=== PATIENT | female | born 1985 | race Caucasian/White ===

== ENCOUNTER 2019-09-25 11:09 | Outpatient (CLI) | payer OTHER, SELFPAY ==
--- NOTE | ~2019-09-25 | US_ITS ---
EXAMINATION: US OB follow up DATE: 09/25/2019 11:39 INDICATION: growth assessment during third trimester TECHNIQUE: Real-time ultrasound of the pelvis was performed. The interpreting radiologist was not pre sent for the study. COMPARISON: None. FINDINGS: There is a single living fetus in vertex presentation. The placenta is anterior. card iac activity and movement are noted. heart rate is 131 beats per minute (bpm). The amniot ic fluid index is 17.2 cm which is normal. The following biometric data were obtained: Biparietal diameter (BPD): 9.2 cm; head circumference (HC): 32.8 cm; abdominal circumference (AC): 33 .7 cm; femur length (FL): 7.1 cm. These measurements are concordant. Estimated weight is 3182 g +/- 477 g, which correlates with the 89th percentile when 10/25/2019 is used as estimated date of delivery. As single measurements, these parameters are each equal to the following estimated gestational ages w ith ranges of +/- 2 standard deviations: BPD: 37 weeks 5 days ( 34 weeks 3 days - 40 weeks 6 days). HC: 37 weeks 2 days ( 34 weeks 4 days - 40 weeks 0 days). AC: 37 weeks 4 days ( 34 weeks 4 days - 40 weeks 5 days). FL: 36 weeks 4 days ( 33 weeks 3 days - 39 weeks 5 days). estimated gestational age based solely on measurements from this exam is 37 weeks 2 days +/- 2 weeks 4 days. IMPRESSION: 1. Single living fetus in vertex presentation. 2. Estimated weight is 3182 g +/- 477 g, which correlates with the 89th percentile when 10/25/19 20 is used as estimated date of delivery. 3. Normal amniotic fluid index. Reviewed, dictated and finalized at location A. IMPRESSION: 1. Single living fetus in vertex presentation. 2. Estimated weight is 3182 g +/- 477 g, which correlates with the 89th p ercentile when 10/25/2019 is used as estimated date of delivery. 3. Normal amniotic fluid index.
== END 2019-09-25 11:10 | disposition home or self-care (01) ==
PROVIDERS: PCP Family Medicine; Visit Provider Obstetrics & Gynecology
DX: Z36.9 Encounter for antenatal screening, unspecified (principal); Z3A.00 Weeks of gestation of pregnancy not specified
CPT/HCPCS: 76816

== ENCOUNTER 2019-10-16 10:17 | Inpatient (IN) | payer OTHER, SELFPAY ==
[2019-10-16] VITALS (11 sets, daily range): BP systolic 116–134; BP diastolic 55–82; PULSE 70–78; TEMP 36.4–36.6; BMI 31.1
--- NOTE | 2019-10-16 14:58 | PM.IMHP ---
H&P: HPI History of Present Illness Chief complaint: iol Narrative: Lavonne Humphries is a 33 year old female currently 38w5d LMP 01/18/19 with DENISSE 10/25/19. Patient is dated by LMP consistent with U/S on 03/20/19 at 8w gestation. Patient presented to L&D for scheduled NST. During the NST, a few variable decelerations as well as spontaneous decelerations were noted. A BPP was performed and was 8/8. Prolonged monitoring was continued and the tracing improved. Discussion was had with patient regarding situation and although currently reassuring, based on initial non-reassuring tracing and term gestation, decision made to admit patient and proceed with IOL. Patient otherwise reports feeling well. Denies any vaginal bleeding, leakage of fluid, or ctx. Reports good movement. Review of Systems Review of Systems: All systems reviewed & are unremarkable except as noted in HPI and below Constitutional: Constitutional: Reports as per HPI, Reports no additional constitutional complaints, Denies chills, Denies fever(s), Denies headache(s) and Denies night sweats Eyes: Eyes: Reports as per HPI and Reports no additional eye complaints ENT: Reports system reviewed and no additional complaints, except as documented, Reports as per HPI, Reports Normal hearing present and Denies headache(s) Cardiovascular: Cardiovascular: Reports as per HPI, Reports no additional cardiovascular complaints, Denies chest pain and Denies dyspnea Respiratory: Respiratory: Reports as per HPI, Reports no additional respiratory complaints, Denies cough and Denies dyspnea Gastrointestinal: Gastrointestinal: Reports as per HPI, Reports no additional gastrointestinal complaints, Denies abdominal pain, Denies change in bowel habits, Denies change in stool character, Denies nausea and Denies vomiting Genitourinary: Genitourinary: Reports no additional female genitourinary complaints, Reports as per HPI, Denies abnormal vaginal bleeding, Denies genital lesions, Denies hot flashes, Denies dyspareunia, Denies pelvic pain, Denies sexual dysfunction, Denies urinary incontinence, Denies vaginal discharge, Denies vaginal dryness and Denies vaginal odor Musculoskeletal: Musculoskeletal: Reports no additional musculoskeletal complaints and Reports as per HPI Integumentary/Breasts: Skin/Breast: Reports system reviewed and no additional complaints, except as docu, Reports as per HPI, Denies breast pain and Denies nipple discharge Neurologic: Reports system reviewed and no additional complaints, except as documented, Reports as per HPI, Reports Normal hearing present and Denies headache(s) Psychiatric: Psychiatric: Reports no additional psychiatric complaints, Reports as per HPI, Denies anxiety and Denies depression Endocrine: Endocrine: Reports no additional endocrine complaints and Reports as per HPI Hematologic/Lymphatic: Hematologic/Lymphatic: Reports no additional hematologic/lymphatic complaints and Reports as per HPI Allergic/Immunologic: Allergic/Immunologic: Reports no additional allergic/immunologic complaints and Reports as per HPI [facility] Social History Social History Smoking status: Former smoker Second hand tobacco smoke exposure: No Smoking end date: 04/09/10 Alcohol intake: never Substance use: never Gender identity (if verbalized by the patient): Female Spiritual care concerns: No Meds Home Medications and Allergies Home Medications Medication Instructions Recorded Confirmed Type selenium 200 mcg tablet 200 mcg PO DAILY 02/11/19 10/02/19 History vits 75-iron 28 mg-folic 1 pkg PO DAILY 02/20/19 10/02/19 History acid 800 mcg-omega-3 oral combo pack sertraline 50 mg tablet 50 mg PO DAILY #90 tablet 07/07/19 10/02/19 Rx imiquimod 5 % topical cream packet 1 applic TOPICAL 3XW #12 each 09/25/19 10/02/19 Rx cholecalciferol (vitamin D3) 50 mcg PO DAILY 10/02/19 10/02/19 His
[2019-10-16 16:08] LABS: Basophils Percent Auto 0.1 % (0.2-1.2); Eosinophils Percent Auto 0.1 % (0-4.4); Hematocrit 39.7 % (37.0-47.0); Hemoglobin 13.4 g/dL (12.0-15.0); Immature Granulocyte Absolute 0.06 K/mm3 (0.00-0.031); Immature Granulocyte Percent A 0.6 % (0-0.5); Lymphocytes Absolute Auto 1.34 K/mm3 (0.9-3.2); Lymphocytes Percent Auto 13.9 % (18.3-44.2); Mean Corpuscular HGB Conc 33.8 g/dl (32-36); Mean Corpuscular Hemoglobin 30.9 pg (26-34); Mean Corpuscular Volume 91.7 fl (80-100); Mean Platelet Volume 10.7 fl (7.4-10.4); Monocytes Absolute Auto 0.3 K/mm3 (0.1-0.6); Monocytes Percent Auto 3.3 % (2.6-8.5); Neutrophils Absolute Auto 7.9 K/mm3 (1.3-6.7); Platelet Count Result 174 k/mm3 (150-375); Red Blood Count 4.33 M/mm3 (4.2-5.4); White Blood Count 9.6 K/mm3 (4.5-10.0)
--- NOTE | 2019-10-16 16:15 | WPDANESEPP ---
Anes - Eval Pre Procedure Procedure: Labor Epidural Date/Time: 10/16/19 16:15 Pre Op Diagnosis: iol Patient Data Age: 33 Gender: F Height: Weight: Allergies Allergy/AdvReac Type Severity Reaction Status Date / Time Iodinated Contrast Media Allergy Severe Unknown Verified 10/16/19 09:44 Home Medications Medication Instructions Recorded Confirmed Type selenium 200 mcg tablet 200 mcg PO DAILY 02/11/19 10/02/19 History vits 75-iron 28 mg-folic 1 pkg PO DAILY 02/20/19 10/02/19 History acid 800 mcg-omega-3 oral combo pack sertraline 50 mg tablet 50 mg PO DAILY #90 tablet 07/07/19 10/02/19 Rx imiquimod 5 % topical cream packet 1 applic TOPICAL 3XW #12 each 09/25/19 10/02/19 Rx cholecalciferol (vitamin D3) 50 mcg PO DAILY 10/02/19 10/02/19 History [Vitamin D3] levothyroxine 25 mcg PO DAILY 10/02/19 10/02/19 History vitamin B complex [B 1 tablet PO DAILY 10/02/19 10/02/19 History Complex-Vitamin B12] Laboratory Tests 10/16/19 10/16/19 15:58 15:58 WBC 9.6 K/mm3 K/mm3 (4.5-10.0) RBC 4.33 M/mm3 M/mm3 (4.2-5.4) Hgb 13.4 g/dL g/dL (12.0-15.0) Hct 39.7 % % (37.0-47.0) MCV 91.7 fl fl (80-100) MCH 30.9 pg pg (26-34) MCHC 33.8 g/dl g/dl (32-36) RDW 13.0 % % (11.5-14.5) Plt Count 174 k/mm3 k/mm3 (150-375) MPV 10.7 fl H fl (7.4-10.4) Immature Gran % (Auto) 0.6 % H % (0-0.5) Neut % (Auto) 82.0 % H % (45.5-73.1) Lymph % (Auto) 13.9 % L % (18.3-44.2) Morrow % (Auto) 3.3 % % (2.6-8.5) Eos % (Auto) 0.1 % % (0-4.4) Baso % (Auto) 0.1 % L % (0.2-1.2) Lymph # (Auto) 1.34 K/mm3 K/mm3 (0.9-3.2) Morrow # (Auto) 0.3 K/mm3 K/mm3 (0.1-0.6) Eos # (Auto) 0.0 K/mm3 K/mm3 (0-0.3) Baso # (Auto) 0.0 K/mm3 K/mm3 (0.0-0.1) Abs Immat Gran (auto) 0.06 K/mm3 H K/mm3 (0.00-0.031) Absolute Neuts (auto) 7.9 K/mm3 H K/mm3 (1.3-6.7) Absolute Nucleated RBC 0.0 K/mm3 K/mm3 (0.0-0.012) Nucleated RBC % 0.0 % % (0.0-0.2) RPR Pending Patient hx anesthesia problems: none Family hx anesthesia problems: none PMFSH Past Medical History Medical History Encounter for supervision of other normal , second trimester History of thyroid disease Supervision of other high risk pregnancies, third trimester Family History Family History Father Hypertension Grandparent Diabetes mellitus Breast cancer Hypertension Father Hypertension Grandparent Hypertension Family history of malignant neoplasm of male breast, Onset Age: 62 Diabetes mellitus Family history of lung cancer Family history of malignant neoplasm of breast Family history of dementia Mother Hypertension Other Family history of coronary artery disease Family history of thyroid disease Social History Social History Smoking status: Former smoker Second hand tobacco smoke exposure: No Smoking end date: 04/09/10 Alcohol intake: never Substance use: never Gender identity (if verbalized by the patient): Female Spiritual care concerns: No Exam Day of Procedure 10/16/19 16:15
[2019-10-16] MEDS: DINOPROSTONE 10 MG VAG INSERT VAGINAL (16:48)
--- NOTE | 2019-10-16 16:50 | LDADM ---
This patient, Lavonne Humphries, was admitted to Labor/Delivery/Recovery 108 on 10/16/19 at 10:17. Plans for labor, pain management and were discussed with patient. Patient/family oriented to hospital policies and general routines including ID bracelet, bed and alarms, visiting hours, pain management, procedures, bathroom and other care routines, personal items, smoking policy, room service/diet and guest tray routines, infant security routines, and visiting hours. Patient/Family are encouraged to report perceived risks to care and to ask questions if they do not understand what they are told or what they should do. See OBIX for further documentation.
--- NOTE | 2019-10-16 17:17 | WPDANESEPP ---
Anes - Eval Pre Procedure Procedure: labor epidural Date/Time: 10/16/19 17:17 Surgeon: twin Pre Op Diagnosis: iol Patient Data Age: 33 Gender: F Height: 1.75 m Weight: 95.5 kg Last Vital Signs Pulse 78 10/16/19 17:06 BP 127/80 10/16/19 17:06 Allergies Allergy/AdvReac Type Severity Reaction Status Date / Time Iodinated Contrast Media Allergy Severe Unknown Verified 10/16/19 09:44 Home Medications Medication Instructions Recorded Confirmed Type selenium 200 mcg tablet 200 mcg PO DAILY 02/11/19 10/16/19 History vits 75-iron 28 mg-folic 1 pkg PO DAILY 02/20/19 10/16/19 History acid 800 mcg-omega-3 oral combo pack sertraline 50 mg tablet 50 mg PO DAILY #90 tablet 07/07/19 10/16/19 Rx imiquimod 5 % topical cream packet 1 applic TOPICAL 3XW #12 each 09/25/19 10/16/19 Rx cholecalciferol (vitamin D3) 50 mcg PO DAILY 10/02/19 10/16/19 History [Vitamin D3] levothyroxine 25 mcg PO DAILY 10/02/19 10/16/19 History vitamin B complex [B 1 tablet PO DAILY 10/02/19 10/16/19 History Complex-Vitamin B12] Laboratory Tests 10/16/19 10/16/19 15:58 15:58 WBC 9.6 K/mm3 K/mm3 (4.5-10.0) RBC 4.33 M/mm3 M/mm3 (4.2-5.4) Hgb 13.4 g/dL g/dL (12.0-15.0) Hct 39.7 % % (37.0-47.0) MCV 91.7 fl fl (80-100) MCH 30.9 pg pg (26-34) MCHC 33.8 g/dl g/dl (32-36) RDW 13.0 % % (11.5-14.5) Plt Count 174 k/mm3 k/mm3 (150-375) MPV 10.7 fl H fl (7.4-10.4) Immature Gran % (Auto) 0.6 % H % (0-0.5) Neut % (Auto) 82.0 % H % (45.5-73.1) Lymph % (Auto) 13.9 % L % (18.3-44.2) Cameron % (Auto) 3.3 % % (2.6-8.5) Eos % (Auto) 0.1 % % (0-4.4) Baso % (Auto) 0.1 % L % (0.2-1.2) Lymph # (Auto) 1.34 K/mm3 K/mm3 (0.9-3.2) Cameron # (Auto) 0.3 K/mm3 K/mm3 (0.1-0.6) Eos # (Auto) 0.0 K/mm3 K/mm3 (0-0.3) Baso # (Auto) 0.0 K/mm3 K/mm3 (0.0-0.1) Abs Immat Gran (auto) 0.06 K/mm3 H K/mm3 (0.00-0.031) Absolute Neuts (auto) 7.9 K/mm3 H K/mm3 (1.3-6.7) Absolute Nucleated RBC 0.0 K/mm3 K/mm3 (0.0-0.012) Nucleated RBC % 0.0 % % (0.0-0.2) RPR Pending Patient hx anesthesia problems: none Family hx anesthesia problems: none PMFSH Past Medical History Medical History Encounter for supervision of other normal , second trimester History of thyroid disease Supervision of other high risk pregnancies, third trimester Family History Family History Father Hypertension Grandparent Diabetes mellitus Breast cancer Hypertension Father Hypertension Grandparent Hypertension Family history of malignant neoplasm of male breast, Onset Age: 62 Diabetes mellitus Family history of lung cancer Family history of malignant neoplasm of breast Family history of dementia Mother Hypertension Other Family history of coronary artery disease Family history of thyroid disease Social History Social History Smoking status: Never smoker Second hand tobacco smoke exposure: No Smoking end date: 04/09/10 Alcohol intake: never Substance use: never Gender identity (if verbalized by the patient): Female Spiritual care concerns: No Exam Day of Procedure 10/16/19 17:17
[2019-10-16] MEDS: LACTATED RINGERS 1,000 ML 125 ML IV CONT (23:57)
[2019-10-17] VITALS (105 sets, daily range): BP systolic 86–137; BP diastolic 33–89; PULSE 75–165; RESP 16–18; TEMP 36.7–37.3; O2SAT 94–100
[2019-10-17] MEDS: LACTATED RINGERS 1,000 ML 125 ML IV CONT ×2 (01:16→03:17)
[2019-10-17] MEDS: TERBUTALINE SULFATE 1 MG/ML VIAL 0.25 MG SUB-Q (02:38)
[2019-10-17] MEDS: SODIUM CHLORIDE 0.9% IV 300 ML 600 ML I-UTERINE (03:40)
[2019-10-17] MEDS: OXYTOCIN 30 UNITS/NS 500 ML 30 UNITS/500 ML BAG 999 UNITS IV CONT (04:30)
--- NOTE | 2019-10-17 04:44 | PM.OBPRVD ---
OB - Delivery Note Procedure Delivery date: 10/17/19 Procedure: Patient is a 33-year-old now who presented to Labor and delivery at 38 weeks and 5 days gestation on 10/16/2019 for scheduled nonstress test. During nonstress test, a nonreassuring tracing was noted. Although subsequent BPP was adequate and tracing improved, decision was made to proceed with induction of labor. Patient was admitted to Labor and delivery and induction of labor was begun with Cervidil. Initial cervical exam was 1 cm dilated. Patient began gabriela was noted to be gabriela frequently. Tachysystole was noted and cervidil was removed after 8-1/2 hours at 0110. Cervical exam was 3 cm dilated. A few late decelerations were also noted on EFM. Resuscitative measures were performed and decelerations resolved. SROM occurred at 0130. Clear fluid was noted. She became uncomfortable and requested an epidural for pain management which was placed without difficulty. Frequent contractions persisted. Terbutaline x1 dose was administered and contractions spaced out. Variable decelerations were noted on EFM. An IUPC was placed for enhanced monitoring and an amnioinfusion was started. Patient continued to make cervical change and was noted to be fully dilated at 0357. She was prepped and draped for delivery. She was encouraged to push and found to be pushing well. At 0429, infant head was delivered atraumatically without difficulty in OSCAR presentation. Compound presentation was noted as a hand delivered alongside face. Occiput restituted to maternal right side. A nuchal cord x1 was noted and easily reduced. With subsequent push, the 's neck, shoulders, and rest of body were delivered without difficulty. Infant's nose and mouth were suctioned bulb suction. The was placed on maternal abdomen and care was assumed by awaiting nursing staff. The placenta was delivered spontaneously and intact. Uterine fundus was noted to be firm with massage. On inspection, no lacerations were noted. The patient was cleansed and dried. Estimated blood loss for entire delivery was 150 cc. The was a live-born female infant, Apgars 9 and 9, weighing 7 lb 12 oz. Both mother and baby were doing well at and delivery. events: Labor Induction Intrapartal events: None Induction method: other (Cervidil) Delivery monitor: external FHT and internal uterine Route of delivery: Laceration description: None Specimen: Yes (cord blood and cord gases) Estimated blood loss (mL): 150 Anesthesia type: Epidural Complications: No immediate complications [facility] Date of : 10/17/19 Time of : 04:29 Weeks of gestation at delivery: 38 gender: Female Weight (pounds): 7 Weight (ounces): 12 presentation: vertex position: Right Occiput Anterior Placenta delivery description: Spontaneous cord vessel description: 3 Vessels and Nuchal Cord (x1) score one minute: 9 score five minutes: 9
[2019-10-17] MEDS: OXYTOCIN 30 UNITS/NS 500 ML 30 UNITS/500 ML BAG 125 UNITS IV CONT (05:16)
[2019-10-17] MEDS: LEVOTHYROXINE SODIUM 25 MCG TABLET PO (07:15)
[2019-10-17] MEDS: DOCUSATE SODIUM 100 MG CAPSULE PO ×2 (08:42→15:23)
[2019-10-17] MEDS: IBUPROFEN 600 MG TABLET PO ×3 (08:42→22:19)
[2019-10-17] MEDS: LANOLIN (LANSINOH) 7.5 GM CREAM 1 APPLIC TOPICAL (08:43)
[2019-10-17 12:37] LABS: Rapid Plasma Reagin Non-Reactive (NonReactive)
--- NOTE | 2019-10-17 14:00 | PC.NURSE ---
Consult with pt., mother reports breastfeeidng first 2 children without issue. Mother verbalizes she is able to independently latch with appropriate positioning/alignment. Mother reports she last fed infant at 0800. Reviewed feeding freq. Demonstrated stimulation techniques to wake infant for feeding. Assisted with infant to breast. Reviewed positioning/alignment, holding breast and asymmetrical latch on. was sleepy and not latching. Mother will change diaper and attempt again in 10 minutes.
--- NOTE | 2019-10-17 14:10 | PC.NURSE ---
Addendum entered by Keerthi Root RN 10/17/19 14:11: Pt. admitted to room 286 at 0735 Original Note: Patient transferred to post room #286 per wheelchair. Support person present. Oriented to unit, room, information board, rooming in, admission packet and security measures. Patient verbalizes understanding.
--- NOTE | 2019-10-17 14:25 | PC.NURSE ---
Upon entering mother has to breast. Reviewed positioning/alignment in cross cradle, holding breast in U hold and guided asymmetrical latch on. Discussed the rational for each. Infant was latched correctly. nursed eagerly, with steady draws and frequent swallowing noted. Reviewed signs of a correct latch, effective nursing and suck swallow ratio. was able to maintain latch without discomfort to mother. Nipple care reviewed. Demonstrated how to adjust latch more deeply while feeding. Suggested to stimulate to keep to keep infant awake and nursing effectively and to assist maintaining a deep latch. Instructed mother to call out for RN assistance if she is unable to latch for feeding or she has discomfort with nursing. Instructed feeding should be initiated three hours from start of last feeding or if feeding cues are noted before. Mother voiced understanding of information shared.
[2019-10-18 05:19] LABS: Hematocrit 35.3 % (37.0-47.0); Hemoglobin 11.8 g/dL (12.0-15.0)
--- NOTE | 2019-10-18 08:18 | WPDANLDPN2 ---
Anes-Prog Note L&D Date/Time: 10/18/19 08:18 Comfortable throughout: labor and delivery Neuraxial method: epidural Epidural/Spinal procedure site: clean & non-tender Neuro status: Neuro function grossly intact. Cardiovascular status: normal Respiratory status: normal Airway patency: baseline Mental status: baseline Post-Op hydration status: normal Vital Signs: Last Vital Signs Temp 98.0 F 10/17/19 21:00 Pulse 75 10/17/19 21:00 Resp 16 10/17/19 21:00 BP 137/80 10/17/19 21:00 Pulse Ox 100 10/17/19 21:00 Post-procedural complaints: none Patient feedback: Patient satisfied with anesthetic care.
[2019-10-18 08:50] VITALS: BP 125/76; PULSE 83; RESP 16; TEMP 36.7
[2019-10-18] MEDS: IBUPROFEN 600 MG TABLET PO (08:51)
[2019-10-18] MEDS: MULTIVIT/MIN/PREN/FOL AC/IRON TABLET 1 TAB PO (08:51)
[2019-10-18] MEDS: DOCUSATE SODIUM 100 MG CAPSULE PO (08:51)
--- NOTE | 2019-10-18 09:36 | PM.OBPNVD ---
OB - PN: Subj Subjective Date/time seen: 10/18/19 09:36 Patient doing well. Mild vaginal soreness. Denies heavy lochia. Denies any headache, chest pain, SOB, N/V. Ambulating and voiding well. OB - PN: Obj Data Labs CBC & Chem 7: 10/18/19 03:43 Labs: Laboratory Results - last 24 hr 10/16/19 10/18/19 15:58 03:43 Hgb 11.8 L Hct 35.3 L RPR Non-reactive OB - PN A/P Assessment and Plan (1) Normal spontaneous vaginal delivery: Code(s): O80 - Encounter for full-term uncomplicated delivery Status: Acute Assessment and Plan: PPD #1 doing well pt requesting PPD#1 discharge plan is to dc home in stable condition emergency precautions reviewed f/u in office in 4-6 weeks for visit all questions and concerns addressed Time Spent With Patient Time: Total time spent is greater than 50% in coordination of care (as documented) at patient's floor/unit and/or counseling patient: Exam Const: General: comfortable and no acute distress GI: GI Palp: Yes Soft to palpation and No Tenderness to palpation present (GI) Other: fundus below umbilicus Extrem: Right lower extremity: no edema Left lower extremity: no edema Other: no calf tenderness
--- NOTE | 2019-10-18 09:38 | PM.OBDSVD ---
DS: Admitting Diagnosis Admitting Diagnosis Admitting Diagnosis: Encounter for supervision of normal , unspecified, unspecified trimester OB - DS: Summary OB Procedures : None OB Procedures Intrapartum: Spontaneous Vag Delivery OB Procedures: : None Time Spent with Patient Time attestation: Total time spent providing and/or coordinating discharge services: DS: Data Data Completed and Pending Labs on day of discharge: Labs from last 24 hours 10/18/19 10/16/19 03:43 15:58 Hgb 11.8 L Hct 35.3 L RPR Non-reactive Discharge Plan Discharge Attending physician on discharge: Hollie Heard Discharging Clinician: Hollie Heard Anticipated Discharge Date/Time: 10/18/19 09:38 Patient Disposition: Home, Self-Care Activity: as tolerated and pelvic rest Diet: regular Discharge Instructions: Call office ([phone]) to schedule a visit in 4-6 weeks. You may take Ibuprofen 600mg every 6 hours as needed for pain. Pain medication may make you constipated. It may be helpful to take an ngyk-eio-emfoanr stool softener, such as Colace and/or Senokot, along with the pain medication to help lessen constipation. Call office or go to ED for pain not controlled with medication, headache, chest pain, shortness of breath, fever, chills, persistent nausea or vomiting, severe abdominal pain, heavy vaginal bleeding >2 pads/hour, foul vaginal discharge or odor, or problems with your breasts. Patient Instructions: Antibiotic Form Stand Alone Forms: General Discharge Information Follow-up/Referrals: Alex Gan MD [Physician] - Discharge Medications: Continued selenium 200 mcg tablet 200 mcg PO DAILY RF: 0 One A Day Women's DHA 28 mg iron- 800 mcg combo pack 1 pkg PO DAILY RF: 0 sertraline 50 mg tablet 50 mg PO DAILY Qty: 90 RF: 1 imiquimod 5 % cream in packet 1 applic TOPICAL 3XW Qty: 12 RF: 0 vitamin B complex [B Complex-Vitamin B12] Tablet 1 tablet PO DAILY RF: 0 levothyroxine 25 mcg tablet 25 mcg PO DAILY RF: 0 Discontinued cholecalciferol (vitamin D3) [Vitamin D3] 50 mcg (2,000 unit) Capsule 50 mcg PO DAILY RF: 0 Date of admission: 10/16/19 10:17 Primary Care Provider: Francine Pizano Admitting Provider: Alex Gan Attending physician on admission: Alex Gan Condition: Stable
[2019-10-20 10:14] VITALS: BP 112/84; PULSE 50; RESP 14; TEMP 37
== END 2019-10-18 11:34 | disposition home or self-care (01) | DRG 807 ==
LOC: ANHLDR 14:35 → ANHOB2 10-17 14:25 → ANHLDR 10-21 10:14 → ANHOB2 10-21 10:14
PROVIDERS: Admitting Provider Student in an Organized Health Care Education/Training Program; PCP Family Medicine; Visit Provider Student in an Organized Health Care Education/Training Program
DX: O36.8330 Maternal care for abnormalities of the fetal heart rate or rhythm, third trimester, not applicable or unspecified (principal); Z37.0 Single live birth; Z3A.38 38 weeks gestation of pregnancy; O99.284 Endocrine, nutritional and metabolic diseases complicating childbirth; E03.8 Other specified hypothyroidism; E06.3 Autoimmune thyroiditis; O69.81X0 Labor and delivery complicated by cord around neck, without compression, not applicable or unspecified; O32.6XX0 Maternal care for compound presentation, not applicable or unspecified
CPT/HCPCS: 36415; 85014; 85018; 85025; 86592; 86850; 86900; 86901; A9270; J2590; J2795; J3105; J7030; J7120

== ENCOUNTER 2019-10-16 10:17 | Outpatient (RCR) | payer OTHER, SELFPAY ==
[2019-10-02 09:35] VITALS: BP 114/73; PULSE 81
[2019-10-09 11:10] VITALS: BP 128/69; PULSE 81
--- NOTE | ~2019-10-16 | US_ITS ---
EXAMINATION: US OB limited w BPP DATE: 10/16/2019 11:43 INDICATION: Third trimester presenting with cardiac decelerations. Assess amniotic fl uid index and biophysical profile. TECHNIQUE: Real-time pelvic ultrasound was performed. The interpreting radiologist was not present fo r the study. COMPARISON: 09/25/2019 FINDINGS: There is a single living fetus in vertex presentation. The placenta is anterior and not low-lying. F etal heart rate is 150 beats per minute (bpm). Normal amniotic fluid index of 8.3 cm (5th%-95%: 7.3-3 3.9 cm at T8 weeks estimated gestational age). Biophysical profile performed by the technologist: breathing (30 sec sustained breathing in 30 minutes): 2 out of 2 movement (3 gross body movements in 30 minutes): 2 out of 2 tone (one episode of qzszmob-tvsfznwoj-bywkfgv limb movement): 2 out of 2 Amniotic fluid pocket (2 cm): 2 out of 2 Total score: 8 out of 8 IMPRESSION: 1. Single living fetus in vertex presentation with heart rate of 150 bpm. 2. Biophysical profile 8 out of 8. 3. Normal amniotic fluid index of 8.3 cm. Reviewed, dictated and finalized at location A.
--- NOTE | 2019-10-16 12:01 | PC.NURSE ---
Dr Heard updated on fht's, prolonged accels vs decels and BPP and JARRET results. Orders for extended monitoring. Patient may eat.
[2019-10-16 17:42] VITALS: BP 122/69; PULSE 81
== END 2019-10-20 07:28 | disposition home or self-care (01) ==
LOC: ANHOBOP 10:17
PROVIDERS: PCP Family Medicine; Visit Provider Obstetrics & Gynecology
DX: O99.89 Other specified diseases and conditions complicating pregnancy, childbirth and the puerperium (principal); E03.9 Hypothyroidism, unspecified; Z3A.36 36 weeks gestation of pregnancy; Z3A.37 37 weeks gestation of pregnancy; Z3A.38 38 weeks gestation of pregnancy
CPT/HCPCS: 59025; 76815; 76819

== ENCOUNTER → 2020-12-06 15:34 | Outpatient (CLI) | payer OTHER, SELFPAY ==
--- NOTE | ~2020-12-06 | US_ITS ---
EXAMINATION: US thyroid DATE: 12/06/2020 15:52 INDICATION: Nontoxic goiter, unspecified. TECHNIQUE: Multiple ultrasound images of the thyroid were obtained. COMPARISON: Thyroid ultrasound 08/05/2016 FINDINGS: The right thyroid lobe measures 4.7 x 1.1 x 1.4 cm. The left thyroid lobe measures 3.6 x 1.0 x 1.2 c m. There is normal echotexture and echogenicity throughout the thyroid gland. No discrete nodules id entified. Normal vascular flow is present. IMPRESSION: 1. Normal thyroid. Reviewed, dictated and finalized at location A. IMPRESSION: 1. Normal thyroid.
== END ==
PROVIDERS: PCP Family Medicine; Visit Provider Obstetrics & Gynecology
DX: E04.9 Nontoxic goiter, unspecified (principal)
CPT/HCPCS: 76536

== ENCOUNTER 2024-11-23 03:20 | Emergency (ER) | payer OTHER, SELFPAY ==
[2024-11-23] VITALS (18 sets, daily range): BP systolic 115–141; BP diastolic 70–93; PULSE 85–98; RESP 15–31; TEMP 36.3–37; O2SAT 98–100
--- OUTSIDE RECORDS SUMMARY | 2024-11-23 03:22 | XMS_ITS | Continuity of Care Document ---
Author Organization [facility] Address [address] [place] [address] Phone Care Team Providers Care Consulting Technical Director Name Role Phone Unavailable Unavailable Unavailable Advance Directives Directive Yes / No Effective Date File Name No Information Encounters Encounter Description Practice Location Reason(s) For Visit Diagnoses Date Provider Providers Copied on Encounter [facility], [address] [facility], [place], [place], [id number], tel:[phone] [facility] No Information 201 [id number] No Information Referring Provider: THALIA PALM, [address] [place] [address],[place], [address]. tel:[phone] Family History Family Member Type Diagnosis Age At Onset No Information Payers Payer name Insurance type Covered green party ID Authoriza tion(s) [facility] [id number] CI [id number] Social History Type Description Quantity Date Captured Comments Sex Female Smoking Status No Information Chief Complaint And Reason For Visit No Information History Of Present Illness Encounter Date Complaint History Of Prese nt Illness No Information Instructions Date Instruction Additional Infor mation No Information Assessments Type Assessment Date No Information
--- OUTSIDE RECORDS SUMMARY | 2024-11-23 03:22 | XMS_ITS | Clinical Summary ---
Author Organization 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 Gender Identity Not on file Sexual Orientation Not on file Plan of Treatment Health Maintenance Due Date Last Done Comments Hepatitis C Virus (HCV) Screening 1986 Hepatitis B Immunization (1 of 3 - 19+ 3-dose series) 2005 Pap Smear 12/22/2007 Human Papillomavirus (HPV) Immunization (1 - 3-dose SCDM series) 2013 Cervical Cancer Screening (CCS) 2016 HPV/Cotest 2016 SARS-COV-2 Immunization (3 - Moderna risk series) 04/11/2021 03/14/2021, 06/08/2020, 05/06/2020 Influenza Immunization (#1) 12/08/202401/08, 12/29/2019, 01/15/2018, Additional history exists Respiratory Syncytial Virus (RSV) Immunization (Adult) (1 - 1-dose 75+ series) 2061 DTaP/Tdap/Td Immunization Discontinued 08/28/2019 TdaP Immunization Completed 08/28/2019 Meningococcal Immunization (ACWY) Aged Out No longer eligible based on patient's age to complete this topic Pneumococcal Immunization Combined Aged Out No longer eligible based on patient's age to complete this topic Rotavirus Immunization Aged Out No lo nger eligible based on patient's age to complete this topic
--- OUTSIDE RECORDS SUMMARY | 2024-11-23 03:22 | XMS_ITS | Clinical Summary ---
Author Organization [facility] - 2022 Address [address] [facility] [address] [place] [address] Phone Care Team Providers Care Drafter Landscape Name Role Phone Francine Pizano MD Primary Care Provider [phone] Social History Tobacco Use Types Packs/Day Years Used Date Smoking Tobacco: Never Assessed Comments Unknown Sex and Gender Information Value Date Recorded Sex Assigned at Not on file Legal Sex Female 11:12 AM CDT Gender Identity Not on file Sexual Orientation Not on file Plan of Treatment Health Maintenance Due Date Last Done Comments HPV VACCINES (1 - 3-dose series) 2001 DTAP/TDAP/TD VACCINES (1 - Tdap) 2005 HEPATITIS B VACCINES (1 of 3 - 19+ 3-dose series) 12/08 HPV/Cotest (21-29) 12/22/2007 CERVICAL CANCER SCREENING 2016 HPV/Cotest (30-65) 2016 PAP SMEAR 2016 INFLUENZA VACCINE (#1) 2024 Insurance [facility] OPTIONS PPO [id number] Care Teams Drafter Landscape Relationship Specialty Start Date End Date Francine Pizano MD PCP - General Family Practice 08/08/12
--- NOTE | 2024-11-23 04:01 | ED_ITS ---
HPI - Skin/Abscess/Foreign Bdy General Chief complaint: Skin/Abscess/Foreign Body Stated complaint: Swelling to right cheek that started as a pimple Time Seen by Provider: 11/23/24 03:51 History of Present Illness HPI narrative: 38-year-old otherwise healthy female presenting with an infected pimple on the right side of her cheek. States that she popped a pimple yesterday and knows that got infected had some redness and swelling. She had a virtual visit with a physician they gave her a prescription for Keflex. She took 3 doses of this every 6 hours and did not have any significant improvement so she came to the emergency department. Denies any difficulty breathing, no difficulty swallowing, trismus, phonation changes or any difficulty neck swelling, pain. Seems isolated to the right-sided lower corner of her mouth or the pimple was previously intact. She has had a similar episode previously requiring antibiotics. No antibiotic allergies, was otherwise in her normal state of health, no fever, chills, headache, nauseousness or vomiting or any systemic symptoms of infection. Related Data Home Medications ?Medication ?Instructions ?Recorded ?Confirmed ?Last Taken ?Type multivitamin 1 tablet PO DAILY 12/15/21 09/18/24 Unknown History L.acidophilus-L.plantarum-L.rhamnosus cap PO 11/12/23 09/18/24 Unknown History 1 billion cell capsule,delay rel (Probiotic Pearls Women's) selenium 200 mcg tablet 200 mcg PO DAILY 11/12/23 09/18/24 Unknown History Allergies Allergy/AdvReac Type Severity Reaction Status Date / Time Iodinated Contrast Media Allergy Severe Unknown Verified 11/23/24 03:21 Review of Systems 2 Review of Systems: As reviewed above in HPI [facility] Past Medical History Medical History Depression Normal spontaneous vaginal delivery History of thyroid disease Surgical History Surgical History [place] teeth removed Family History Family History Father Hypertension Grandparent Diabetes mellitus Breast cancer Hypertension Father Hypertension Grandparent Hypertension Family history of malignant neoplasm of male breast, Onset Age: 62 Diabetes mellitus Family history of lung cancer Family history of malignant neoplasm of breast Family history of dementia Mother Hypertension Other Family history of coronary artery disease Family history of thyroid disease Social History Social History Smoking packs per day: 0 Smoking cigarettes per day: 0.0 Smoking status: Former smoker Second hand tobacco smoke exposure: No Smoking end date: 04/09/10 Alcohol intake: current Drinks per week: 4 Substance use: current Substance use type: marijuana Last use: last weekend Do You Feel Safe in your Home?: Yes Lack of Transportation: YES Lack of Food: Never True Current Housing: I Have Housing Concerned About Future Housing: No Difficulty Paying Gas/Electric Bills: No Difficulty Paying for Meds: No Currently Unemployed: No Education: Bachelor's Degree Gender identity (if verbalized by the patient): Female Spiritual care concerns: No Exam 2 Narrative: GENERAL: [Well-appearing, well-nourished, and in no acute distress.] HEAD: [Normocephalic, atraumatic.] EYES: [PERRLA and EOMI.] ENT: Right lower corner of her mouth has a pimple that appears to be inflamed and infected mildly with a surrounding small abscess isolated lateral to the right lower lip, does not involve the intraoral cavity or the jaw bone. No lip swelling. Mildly fluctuant without any streaking erythema or surrounding redness. Appears to be a superficial abscess without any active drainage. No lymphadenopathy in the head or neck, no trismus, no dental disease. Uvula is midline, no drooling. NECK: Supple. CHEST: [Clear to auscultation. No respiratory distress.] HEART: [Regular rate and rhythm]. No murmur heard. [Normal peripheral pulses.] ABDOMEN: [Soft, nondistended], [nontender], [No rigidity or guarding] EXTREMITIES: Normal range of motion. [No edema.] SKIN: Warm, dry, no rash. NEURO: [No focal deficits]. Alert and oriented [x3.] PSYCH: [Normal mood and affect.] Course Vital Signs Vital signs: Vital Signs Temperature 37.0 C 11/23/24 03:25 Pulse Rate 94 11/23/24 03:25 Respiratory Rate 15 11/23/24 03:25 Blood Pressure 141/92 H 11/23/24 03:25 Pulse Oximetry 100 11/23/24 03:25 Oxygen Delivery Room Air 11/23/24 03:25 Temperature 36.3 C L 11/23/24 06:38 Pulse Rate 86 11/23/24 06:38 Respiratory Rate 23 H 11/23/24 06:38 Blood Pressure 127/84 11/23/24 06:38 Pulse Oximetry 100 11/23/24 06:38 Oxygen Delivery Room Air 11/23/24 03:25 MDM - Skin/Abscess/Foreign Bdy MDM Narrative Medical decision making narrative: 38-year-old otherwise healthy female presenting with an infected pimple on the right side of her cheek. States that she popped a pimple yesterday and knows that got infected had some redness and swelling. She had a virtual visit with a physician they gave her a prescription for Keflex. She took 3 doses of this every 6 hours and did not have any significant improvement so she came to the emergency department. Denies any difficulty breathing, no difficulty swallowing, trismus, phonation changes or any difficulty neck swelling, pain. Seems isolated to the right-sided lower corner of her mouth or the pimple was previously intact. She has had a similar episode previously requiring antibiotics. No antibiotic allergies, was otherwise in her normal state of health, no fever, chills, headache, nauseousness or vomiting or any systemic symptoms of infection. Right lower corner of her mouth has a pimple that appears to be inflamed and infected mildly with a surrounding small abscess isolated lateral to the right lower lip, does not involve the intraoral cavity or the jaw bone. No lip swelling. Mildly fluctuant without any streaking erythema or surrounding redness. Appears to be a superficial abscess without any active drainage. No lymphadenopathy in the head or neck, no trismus, no dental disease. Uvula is midline, no drooling. I discussed that her current antibiotic regimen including Keflex is likely not sufficient and does not cover MRSA or soft tissue abscesses. We changes to include Bactrim twice daily for 10 days and give her dose of Tylenol and ibuprofen. Laboratory studies were drawn in triage so we added on some inflammatory markers to assess for severity of inflammation although clinically she appears well and can be safely discharged assuming unremarkable findings. No fever or tachycardia. Laboratory studies are reassuring, patient sent home with Bactrim at this time and return precautions. Medical Records Attestation: I reviewed the patient's medical records. Lab Data Attestation: I reviewed the patient's lab results. 11/23/24 03:35 11/23/24 03:34 Labs: Lab Results 11/23/24 11/23/24 Range/Units 03:34 03:35 WBC 6.0 (4.5-10.0) K/mm3 RBC 4.03 L (4.2-5.4) M/mm3 Hgb 12.0 (12.0-15.0) g/dL Hct 36.2 L (37.0-47.0) % MCV 89.8 (80-100) fl MCH 29.8 (26-34) pg MCHC 33.1 (32-36) g/dl RDW 12.5 (11.5-14.5) % Plt Count 187 (150-375) k/mm3 MPV 9.8 (7.4-10.4) fl Immature Gran % (Auto) 0.3 (0-0.5) % Neut % (Auto) 76.1 H (45.5-73.1) % Lymph % (Auto) 16.9 L (18.3-44.2) % [place] % (Auto) 5.9 (2.6-8.5) % Eos % (Auto) 0.5 (0-4.4) % Baso % (Auto) 0.3 (0.2-1.2) % Lymph # (Auto) 1.01 (0.9-3.2) K/mm3 [place] # (Auto) 0.4 (0.1-0.6) K/mm3 Eos # (Auto) 0.0 (0-0.3) K/mm3 Baso # (Auto) 0.0 (0.0-0.1) K/mm3 Abs Immat Gran (auto) 0.02 (0.00-0.031) K/mm3 Absolute Neuts (auto) 4.6 (1.3-6.7) K/mm3 Absolute Nucleated RBC 0.000 (0.0-0.012) K/mm3 Nucleated RBC % 0.0 (0.0-0.2) % ESR 38 H (0-20) mm/hr Sodium 139 (137-145) mmol/L Potassium 4.0 (3.4-5.0) mmol/L Chloride 107 (98-107) mmol/L Carbon Dioxide 24 (22-30) mmol/L Anion Gap 8 (4-12) mmol/L BUN 10 (7-17) mg/dL Creatinine 0.56 L (0.7-1.0) mg/dL Estim Creat Clear Calc 121 ml/min Estimated GFR > 60 (59 - ) Glucose 109 (65-110) mg/dL Calcium 9.4 (8.4-10.2) mg/dL C-Reactive Protein 0.8 (<1.0) mg/dL Discharge Plan Discharge Clinical Impression: Abscess of face Patient Disposition: Home Condition: Stable Instructions: Antibiotic Form, Acne (ED), Abscess (ED) Additional Instructions: Your laboratory studies are reassuring, no signs of systemic inflammation or infection. We will treat this with high strength antibiotics twice daily for the next 10 days. Follow-up with your primary care provider. If symptoms worsen any start developing worsening signs of infection, fevers, headache, inability to open the mouth or swallow or any other symptoms of concern please return to the emergency department. Patient Language: Macedonian Prescriptions: New ibuprofen 800 mg tablet 800 mg PO TID PRN (Reason: pain) Qty: 20 0RF sulfamethoxazole-trimethoprim [Bactrim DS] 800-160 mg tablet 1 tablet PO Q12H Qty: 20 0RF acetaminophen [Tylenol Extra Strength] 500 mg tablet 1,000 mg PO TID PRN (Reason: pain) Qty: 30 0RF No Action Probiotic Pearls Women's 1 billion cell capsule,delayed release(DR/EC) PO selenium 200 mcg tablet 200 mcg PO DAILY multivitamin Tablet 1 tablet PO DAILY levothyroxine 25 mcg tablet See Rx Instructions .ROUTE .COMPLEX Qty: 90 3RF Dose Instruction: TAKE 1 TABLET DAILY Rx Instructions: TAKE 1 TABLET 3x a week (MWF) mometasone 0.1 % solution 1 applic topical DAILY PRN (Reason: itchy scalp) Qty: 60 0RF triamcinolone acetonide 0.1 % cream 1 applic topical BID PRN (Reason: eczema) Qty: 80 2RF bupropion HCl 150 mg tablet extended release 24 hr 150 mg PO QAM Qty: 90 1RF sertraline 100 mg tablet See Rx Instructions .ROUTE .COMPLEX Qty: 135 1RF Dose Instruction: TAKE 1 AND 1/2 TABLETS BY MOUTH DAILY Rx Instructions: TAKE 1 AND 1/2 TABLETS BY MOUTH DAILY dextroamphetamine-amphetamine 10 mg capsule,extended release 24hr 10 mg PO DAILY Qty: 30 0RF Rx Instructions: November dextroamphetamine-amphetamine 10 mg capsule,extended release 24hr 10 mg PO DAILY Qty: 30 0RF Rx Instructions: dextroamphetamine-amphetamine 10 mg capsule,extended release 24hr 10 mg PO DAILY Qty: 30 0RF Rx Instructions: JANUARY metformin [Glucophage XR] 500 mg tablet extended release 24 hr 1,000 mg PO BID Qty: 360 1RF Follow-up/Referrals: Francine Pizano MD [Primary Care Provider] - Time of Disposition: 06:15
--- OUTSIDE RECORDS SUMMARY | 2024-11-23 04:02 | XMS_ITS | Clinical Summary ---
Author Organization 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
--- OUTSIDE RECORDS SUMMARY | 2024-11-23 04:02 | XMS_ITS | Continuity of Care Document ---
Author Organization [facility] Address [address] [place] [address] Phone Care Team Providers Care Real Estate Associate Name Role Phone Unavailable Unavailable Unavailable Advance Directives Directive Yes / No Effective Date File Name No Information Encounters Encounter Description Practice Location Reason(s) For Visit Diagnoses Date Provider Providers Copied on Encounter [facility], [address] [facility], [place], [place], [id number], tel:[phone] [facility] No Information 201 6 No Information Referring Provider: THALIA PALM, [address] [place] [address],[place], [address]. tel:[phone] Family History Family Member Type Diagnosis Age At Onset No Information Payers Payer name Insurance type Covered constitution party ID Authoriza tion(s) [facility] [id number] CI [id number] Social History Type Description Quantity Date Captured Comments Sex Female Smoking Status No Information Chief Complaint And Reason For Visit No Information History Of Present Illness Encounter Date Complaint History Of Prese nt Illness No Information Instructions Date Instruction Additional Infor mation No Information Assessments Type Assessment Date No Information
--- OUTSIDE RECORDS SUMMARY | 2024-11-23 04:02 | XMS_ITS | Clinical Summary ---
Author Organization [facility] - 2022 Address [address] [facility] [address] [place] [address] Phone Care Team Providers Care Human Resources Technician Name Role Phone Francine Pizano MD Primary Care Provider Social History Tobacco Use Types Packs/Day Years [...] SMEAR 2016 INFLUENZA VACCINE (#1) 2024 Insurance [facility] OPTIONS PPO [id number] Care Teams Human Resources Technician Relationship Specialty Start Date End Date Francine Pizano MD PCP - General Family Practice 08/08/12
[2024-11-23] MEDS: ACETAMINOPHEN 500 MG TABLET 1000 MG PO (04:08)
[2024-11-23] MEDS: IBUPROFEN 400 MG TABLET 800 MG PO (04:08)
[2024-11-23] MEDS: SULFAMETHOXAZOLE/TRIMETHOPRIM 800/160 MG DS TABLET 1 TAB PO (04:08)
[2024-11-23 04:16] LABS: Hematocrit 36.2 % (37.0-47.0); Hemoglobin 12.0 g/dL (12.0-15.0); Immature Granulocyte Percent A 0.3 % (0-0.5); Lymphocytes Absolute Auto 1.01 K/mm3 (0.9-3.2); Mean Corpuscular HGB Conc 33.1 g/dl (32-36); Mean Corpuscular Hemoglobin 29.8 pg (26-34); Mean Corpuscular Volume 89.8 fl (80-100); Nucleated Red Blood Cells Absolute Auto 0.000 K/mm3 (0.0-0.012); Nucleated Red Blood Cells Perc 0.0 % (0.0-0.2); Platelet Count Result 187 k/mm3 (150-375); Red Blood Count 4.03 M/mm3 (4.2-5.4); White Blood Count 6.0 K/mm3 (4.5-10.0)
[2024-11-23 04:18] LABS: Anion Gap 8 mmol/L (4-12); Blood Urea Nitrogen 10 mg/dL (7-17); CRP 0.8 mg/dL (<1.0); Calcium 9.4 mg/dL (8.4-10.2); Carbon Dioxide 24 mmol/L (22-30); Chloride 107 mmol/L (98-107); Estimated CRCL calculation 121 ml/min; Estimated Glomerular Filt Rate > 60; Glucose 109 mg/dL (65-110); Potassium 4.0 mmol/L (3.4-5.0); Sodium 139 mmol/L (137-145)
== END 2024-11-23 06:40 | disposition home or self-care (01) ==
PROVIDERS: Emergency Provider Student in an Organized Health Care Education/Training Program; PCP Family Medicine
DX: L02.01 Cutaneous abscess of face (principal); Z87.891 Personal history of nicotine dependence
CPT/HCPCS: 36415; 80048; 85025; 85652; 86140; 99283; A9270

== ENCOUNTER 2024-11-24 09:05 | Observation (INO) | payer OTHER, SELFPAY ==
--- NOTE | ~2024-11-24 | CT_ITS ---
EXAMINATION: CT facial bones wo con DATE: 11/24/2024 09:33 INDICATION: Right-sided swelling, redness TECHNIQUE: Computed tomography (CT) of the facial bones and maxillofacial region was performed withou t intravenous contrast. The dose-length product was 353.84 mGy-cm. COMPARISON: None. FINDINGS: Visualized area contents are grossly unremarkable. Globes and orbits are grossly unremarkable. Parana lakesha sinuses and mastoid air cells are clear. No skull fracture identified. There is a 2.3 x 2.1 x 3.0 cm amorphous density in the soft tissues/subcutaneous fat adjacent to the anterolateral aspect of the right maxilla. There is a small locule of air in this location measuring 7 x 2 mm. No adjacent bony destruction. The finding is favored to represent a phlegmon. No loculated fluid collection in this location at this time. IMPRESSION: 1. There is a 2.3 x 2.1 x 3.0 cm amorphous density in the soft tissues/subcutaneous fat adjacent to t he anterolateral aspect of the right maxilla. There is a small locule of air in this location. No adj acent bony destruction. The finding is favored to represent a phlegmon. No loculated fluid collection in this location at this time. Recommend follow-up to resolution to exclude an underlying mass. Reviewed, dictated and finalized at location A. IMPRESSION: 1. There is a 2.3 x 2.1 x 3.0 cm amorphous density in the soft tissues/subcutan eous fat adjacent to the anterolateral aspect of the right maxilla. There is a small locule of air in this location. No adjacent bony destruction. The finding is favored to represent a phlegmon. No loculated fluid collection in this loca tion at this time. Recommend follow-up to resolution to exclude an underlying m ass.
[2024-11-24 09:10] VITALS: BP 138/96; PULSE 87; RESP 16; TEMP 36.9; O2SAT 99
--- OUTSIDE RECORDS SUMMARY | 2024-11-24 09:24 | XMS_ITS | Clinical Summary ---
Author Organization [facility] - 2022 Address [address] [facility] [address] [place] [address] Phone Care Team Providers Care Brick Carrier Name Role Phone Francine Pizano MD Primary [...] SMEAR 2016 INFLUENZA VACCINE (#1) 2024 Insurance [facility] OPTIONS PPO [id number] Care Teams Brick Carrier Relationship Specialty Start Date End Date Francine Pizano MD PCP - General Family Practice 08/08/12
--- OUTSIDE RECORDS SUMMARY | 2024-11-24 09:24 | XMS_ITS | Clinical Summary ---
Author Organization 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
--- NOTE | 2024-11-24 09:25 | ED_ITS ---
HPI - Skin/Abscess/Foreign Bdy General Chief complaint: Skin/Abscess/Foreign Body Stated complaint: facial cellulitis Time Seen by Provider: 11/24/24 09:09 Source: patient Mode of arrival: ambulatory Limitations: no limitations History of Present Illness HPI narrative: This is a 38-year-old female that presents to the emergency department for right-sided facial swelling. Reports she popped a pimple on . Since she has had worsening redness, swelling, pain in the area. She was started on Keflex. Took a days worth of at without relief. She was again seen in the ER early yesterday morning. Says which to Bactrim. She has taken 3 doses of that with continued worsening. Reports she now has redness extending into the neck. Denies fevers. Related Data Home Medications ?Medication ?Instructions ?Recorded ?Confirmed ?Last Taken ?Type multivitamin 1 tablet PO DAILY 12/15/21 11/24/24 11/23/24 History L.acidophilus-L.plantarum-L.rhamnosus 1 cap PO DAILY 11/12/23 11/24/24 11/24/24 History 1 billion cell capsule,delay rel (Probiotic Pearls Women's) selenium 200 mcg tablet 200 mcg PO DAILY 11/12/23 11/24/24 11/23/24 History levothyroxine 25 mcg tablet 25 mcg PO DAILY 11/24/24 11/24/24 11/23/24 History (Euthyrox) mupirocin 2 % topical ointment 1 applic topical TID 11/24/24 11/24/24 11/23/24 History Allergies Allergy/AdvReac Type Severity Reaction Status Date / Time Iodinated Contrast Media Allergy Severe Unknown Verified 11/24/24 09:09 Review of Systems 2 Review of Systems: All systems reviewed & are unremarkable except as noted in HPI and below PMFSH Past Medical History Medical History (Updated 11/24/24 @ 11:43 by Nayeli Calix PA-C) Prediabetes Depression Normal spontaneous vaginal delivery History of thyroid disease Surgical History Surgical History Siler teeth removed Family History Family History Father Hypertension Grandparent Diabetes mellitus Breast cancer Hypertension Father Hypertension Grandparent Hypertension Family history of malignant neoplasm of male breast, Onset Age: 62 Diabetes mellitus Family history of lung cancer Family history of malignant neoplasm of breast Family history of dementia Mother Hypertension Other Family history of coronary artery disease Family history of thyroid disease Social History Social History Smoking packs per day: 0 Smoking cigarettes per day: 0.0 Smoking status: Current some day smoker Second hand tobacco smoke exposure: No Smoking end date: 04/09/10 Additional smoking assessment comments: smokes Marijuana Alcohol intake: current Drinks per week: 5 Substance use: current Substance use type: marijuana Last use: 11/22/24-11/23/24 Do You Feel Safe in your Home?: Yes Lack of Transportation: No Lack of Food: Never True Current Housing: I Have Housing Concerned About Future Housing: No Difficulty Paying Gas/Electric Bills: No Difficulty Paying for Meds: No Currently Unemployed: No Education: Master's Degree or Higher Difficulty w/ Childcare or Family Care: No Gender identity (if verbalized by the patient): Female Spiritual care concerns: No Exam 2 Narrative: GENERAL: Well-appearing, well-nourished, and in no acute distress. HEAD: Normocephalic, atraumatic. Right side of the chin with mild to moderate area of erythema, edema, no fluctuance noted. Mild redness extending down into the neck EYES: EOMI. ENT: Nares clear, no rhinorrhea or epistaxis. Mucous membranes moist. Oropharynx without tonsillar hypertrophy exudate or other lesions. No trismus NECK: Supple. Right submandibular adenopathy CHEST: Clear to auscultation. No respiratory distress. No wheezes rales or rhonchi HEART: Regular rate and rhythm. No murmur heard. Normal peripheral pulses. EXTREMITIES: Normal range of motion. No edema. SKIN: Warm, dry, no rash. NEURO: No focal deficits. Alert and oriented x3. PSYCH: Normal mood and affect Course Course Emergency Course: patient updated on her workup and recommendation for admission Consultations Consultation #1: Spoke with hospitalist about patient and workup who accepts admission Date: 11/24/24 Vital Signs Vital signs: Vital Signs Temperature 98.5 F 11/24/24 09:10 Pulse Rate 87 11/24/24 09:10 Respiratory Rate 16 11/24/24 09:10 Blood Pressure 138/96 H 11/24/24 09:10 Pulse Oximetry 99 11/24/24 09:10 Temperature 96.5 F L 11/24/24 15:00 Pulse Rate 77 11/24/24 15:00 Respiratory Rate 16 11/24/24 15:00 Blood Pressure 126/84 11/24/24 15:00 Pulse Oximetry 97 11/24/24 15:00 Oxygen Delivery Room Air 11/24/24 11:37 MDM - Skin/Abscess/Foreign Bdy MDM Narrative Medical decision making narrative: Patient presents the emergency department for facial cellulitis. Was originally started on Keflex, switched to Bactrim. Continued worsening of her symptoms. She is afebrile and nontoxic appearing. No trismus on exam. She does have notable area of edema, erythema to the right side of the chin. No fluctuance noted. Cbc without leukocytosis. Inflammatory markers are elevated. CT of the facial bones as showing likely a phlegmon. Patient started on IV antibiotics. Will be admitted further management Differential Diagnosis Differential diagnosis: Likely abscess of skin or subcutaneous tissue, cellulitis and other (Phlegmon) Lab Data Attestation: I reviewed the patient's lab results. 11/24/24 09:50 11/24/24 09:50 Labs: Lab Results 11/24/24 Range/Units 09:50 WBC 4.9 (4.5-10.0) K/mm3 RBC 4.22 (4.2-5.4) M/mm3 Hgb 12.5 (12.0-15.0) g/dL Hct 37.0 (37.0-47.0) % MCV 87.7 (80-100) fl MCH 29.6 (26-34) pg MCHC 33.8 (32-36) g/dl RDW 12.6 (11.5-14.5) % Plt Count 185 (150-375) k/mm3 MPV 9.9 (7.4-10.4) fl Immature Gran % (Auto) 0.4 (0-0.5) % Neut % (Auto) 83.9 H (45.5-73.1) % Lymph % (Auto) 11.7 L (18.3-44.2) % Hawkins % (Auto) 3.2 (2.6-8.5) % Eos % (Auto) 0.6 (0-4.4) % Baso % (Auto) 0.2 (0.2-1.2) % Lymph # (Auto) 0.58 L (0.9-3.2) K/mm3 Hawkins # (Auto) 0.2 (0.1-0.6) K/mm3 Eos # (Auto) 0.0 (0-0.3) K/mm3 Baso # (Auto) 0.0 (0.0-0.1) K/mm3 Abs Immat Gran (auto) 0.02 (0.00-0.031) K/mm3 Absolute Neuts (auto) 4.1 (1.3-6.7) K/mm3 Absolute Nucleated RBC 0.000 (0.0-0.012) K/mm3 Nucleated RBC % 0.0 (0.0-0.2) % ESR 55 H (0-20) mm/hr Sodium 138 (137-145) mmol/L Potassium 3.9 (3.4-5.0) mmol/L Chloride 105 (98-107) mmol/L Carbon Dioxide 23 (22-30) mmol/L Anion Gap 10 (4-12) mmol/L BUN 10 (7-17) mg/dL Creatinine 0.66 L (0.7-1.0) mg/dL Estim Creat Clear Calc 105 ml/min Estimated GFR > 60 (59 - ) Glucose 191 H (65-110) mg/dL Calcium 9.4 (8.4-10.2) mg/dL C-Reactive Protein 2.0 H (<1.0) mg/dL Imaging Data Radiologist's impression: ITS Impressions Face CT 11/24/24 09:35 IMPRESSION: 1. There is a 2.3 x 2.1 x 3.0 cm amorphous density in the soft tissues/subcutaneous fat adjacent to the anterolateral aspect of the right maxilla. There is a small locule of air in this location. No adjacent bony destruction. The finding is favored to represent a phlegmon. No loculated fluid collection in this location at this time. Recommend follow-up to resolution to exclude an underlying mass. Critical Care Time Critical Care Time Critical Care Time: No Discharge Plan Discharge Clinical Impression: Cellulitis Qualifiers: Site of cellulitis: face Qualified Code(s): L03.211 - Cellulitis of face Patient Disposition: Still a Patient Condition: Stable
[2024-11-24 09:55] LABS: Hematocrit 37.0 % (37.0-47.0); Hemoglobin 12.5 g/dL (12.0-15.0); Immature Granulocyte Percent A 0.4 % (0-0.5); Lymphocytes Absolute Auto 0.58 K/mm3 (0.9-3.2); Mean Corpuscular HGB Conc 33.8 g/dl (32-36); Mean Corpuscular Hemoglobin 29.6 pg (26-34); Mean Corpuscular Volume 87.7 fl (80-100); Nucleated Red Blood Cells Absolute Auto 0.000 K/mm3 (0.0-0.012); Nucleated Red Blood Cells Perc 0.0 % (0.0-0.2); Platelet Count Result 185 k/mm3 (150-375); Red Blood Count 4.22 M/mm3 (4.2-5.4); White Blood Count 4.9 K/mm3 (4.5-10.0)
--- OUTSIDE RECORDS SUMMARY | 2024-11-24 10:07 | XMS_ITS | Clinical Summary ---
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
--- OUTSIDE RECORDS SUMMARY | 2024-11-24 10:07 | XMS_ITS | Clinical Summary ---
Author Organization [facility] - 2022 Address [address] [facility] [address] [place] [address] Phone Care Team Providers Care Technical Photographer Name Role Phone Francine Pizano MD Primary [...] SMEAR 2016 INFLUENZA VACCINE (#1) 2024 Insurance [facility] [employer] PPO [id number] Care Teams Technical Photographer Relationship Specialty Start Date End Date Francine Pizano MD PCP - General Family Practice 08/08/12
[2024-11-24 10:17] LABS: Anion Gap 10 mmol/L (4-12); Blood Urea Nitrogen 10 mg/dL (7-17); CRP 2.0 mg/dL (<1.0); Calcium 9.4 mg/dL (8.4-10.2); Carbon Dioxide 23 mmol/L (22-30); Chloride 105 mmol/L (98-107); Estimated CRCL calculation 105 ml/min; Estimated Glomerular Filt Rate > 60; Glucose 191 mg/dL (65-110); Potassium 3.9 mmol/L (3.4-5.0); Sodium 138 mmol/L (137-145)
[2024-11-24 10:57] VITALS: BP 146/96; PULSE 93; RESP 20; O2SAT 99
[2024-11-24] MEDS: VANCOMYCIN 1,250 MG/NS 250 ML 1,250 MG/250 ML BAG 166.67 MG IVPB ×2 (11:03→23:41)
--- NOTE | 2024-11-24 11:50 | ADMGEN ---
This patient, Lavonne Humphries, was admitted to [facility] Surg Room 315-01. Patient/family oriented to hospital policies and general routines including ID bracelet, bed and alarms, visiting hours, pain management, procedures, bathroom and other care routines, personal items, smoking policy, room service/diet, and visiting hours. Information on how to activate the Rapid Response Team has been discussed. Patient/Family are encouraged to report perceived risks to care and to ask questions if they do not understand what they are told or what they should do.
[2024-11-24 11:55] VITALS: BP 135/94; PULSE 80; RESP 16; TEMP 36.9; O2SAT 100
[2024-11-24 11:58] VITALS: BMI 26.0
--- NOTE | 2024-11-24 13:49 | P.HP_ITS ---
H&P: HPI History of Present Illness Date/Time: 11/24/24 13:49 Chief Complaint: Facial cellulitis Narrative: Patient is a 38 F with no significant past medical history other than prediabetes,ADHD ,a nd hypothyroidism, presents to the ED with an infected pimple on the right side of her cheek. Patient reports her pimple popped up on , and she had a televisit and was given Keflex. Since her redness did n ot improve, she visited the ER and was given Bactrim. The patient took three doses of Bactrim, and she felt her redness and swelling had increased; she visited the ER. Patient is admitted in the setting of IV antibiotics. Nasal MRSA has been ordered. Patient will be started on vancomycin and Ancef. Review of Systems Review of Systems: All systems reviewed & are unremarkable except as noted in HPI and below PMFSH Past Medical History Medical History (Updated 11/24/24 @ 11:43 by Nayeli Calix PA-C) Prediabetes Depression Normal spontaneous vaginal delivery History of thyroid disease Surgical History Surgical History [place] teeth removed Family History Family History Father Hypertension Grandparent Diabetes mellitus Breast cancer Hypertension Father Hypertension Grandparent Hypertension Family history of malignant neoplasm of male breast, Onset Age: 62 Diabetes mellitus Family history of lung cancer Family history of malignant neoplasm of breast Family history of dementia Mother Hypertension Other Family history of coronary artery disease Family history of thyroid disease Social History Social History Smoking packs per day: 0 Smoking cigarettes per day: 0.0 Smoking status: Current some day smoker Second hand tobacco smoke exposure: No Smoking end date: 04/09/10 Additional smoking assessment comments: smokes Marijuana Alcohol intake: current Drinks per week: 5 Substance use: current Substance use type: marijuana Last use: 11/22/24-11/23/24 Do You Feel Safe in your Home?: Yes Lack of Transportation: No Lack of Food: Never True Current Housing: I Have Housing Concerned About Future Housing: No Difficulty Paying Gas/Electric Bills: No Difficulty Paying for Meds: No Currently Unemployed: No Education: Master's Degree or Higher Difficulty w/ Childcare or Family Care: No Gender identity (if verbalized by the patient): Female Spiritual care concerns: No Meds Home Medications and Allergies Home Medications ?Medication ?Instructions ?Recorded ?Confirmed ?Type multivitamin 1 tablet PO DAILY 12/15/21 11/24/24 History L.acidophilus-L.plantarum-L.rhamnosus 1 cap PO DAILY 11/12/23 11/24/24 History 1 billion cell capsule,delay rel (Probiotic Pearls Women's) selenium 200 mcg tablet 200 mcg PO DAILY 11/12/23 11/24/24 History bupropion HCl 150 mg 24 hr tablet, 150 mg PO QAM #90 tabs 07/03/24 11/24/24 Rx extended release sertraline 100 mg tablet See Rx Instructions .Route 07/03/24 11/24/24 Rx .COMPLEX #135 tabs triamcinolone acetonide 0.1 % 1 applic topical BID PRN eczema 08/08/24 11/24/24 Rx topical cream #80 grams levothyroxine 25 mcg tablet See Rx Instructions .Route 09/18/24 11/24/24 Rx .COMPLEX #90 tabs dextroamphetamine-amphetamine ER 10 mg PO DAILY #30 caps 11/11/24 11/24/24 Rx 10 mg 24hr capsule,extend release metformin 500 mg tablet,extended 1,000 mg (2 x 500 mg) PO BID #360 11/14/24 11/24/24 Rx release 24 hr (Glucophage XR) tabs acetaminophen 500 mg tablet 1,000 mg (2 x 500 mg) PO TID PRN 11/23/24 11/24/24 Rx (Tylenol Extra Strength) pain #30 tabs ibuprofen 800 mg tablet 800 mg PO TID PRN pain #20 tabs 11/23/24 11/24/24 Rx sulfamethoxazole 800 1 tablet PO Q12H #20 tabs 11/23/24 11/24/24 Rx mg-trimethoprim 160 mg tablet (Bactrim DS) levothyroxine 25 mcg tablet 25 mcg PO DAILY 11/24/24 11/24/24 History (Euthyrox) mupirocin 2 % topical ointment 1 applic topical TID 11/24/24 11/24/24 History Allergies Allergy/AdvReac Type Severity Reaction Status Date / Time Iodinated Contrast Media Allergy Severe Unknown Verified 11/24/24 09:09 Vital Signs Vital Signs - 24 hr 11/24/24 09:10 11/24/24 10:57 11/24/24 11:37 Temperature 98.5 F Pulse Rate 87 93 Respiratory Rate 16 20 Blood Pressure 138/96 H 146/96 H Pulse Oximetry 99 99 Oxygen Delivery Room Air 11/24/24 11:55 Temperature 98.4 F Pulse Rate 80 Respiratory Rate 16 Blood Pressure 135/94 H Pulse Oximetry 100 Oxygen Delivery Exam Narrative: GENERAL: Well-appearing, well-nourished, and in no acute distress. HEAD: Normocephalic, atraumatic. Right side of the chin with mild to moderate area of erythema, edema, no fluctuance noted. Mild redness extending down into the neck EYES: EOMI. ENT: Nares clear, no rhinorrhea or epistaxis. Mucous membranes moist. Oropharynx without tonsillar hypertrophy exudate or other lesions. No trismus NECK: Supple. Right submandibular adenopathy CHEST: Clear to auscultation. No respiratory distress. No wheezes rales or rhonchi HEART: Regular rate and rhythm. No murmur heard. Normal peripheral pulses. EXTREMITIES: Normal range of motion. No edema. SKIN: Warm, dry, no rash. NEURO: No focal deficits. Alert and oriented x3. PSYCH: Normal mood and affect H&P: Results Labs Labs: Short CBC 11/24/24 Range/Units 09:50 WBC 4.9 (4.5-10.0) K/mm3 Hgb 12.5 (12.0-15.0) g/dL Hct 37.0 (37.0-47.0) % Plt Count 185 (150-375) k/mm3 [facility] 11/24/24 09:50 Sodium 138 Potassium 3.9 Chloride 105 Carbon Dioxide 23 BUN 10 Creatinine 0.66 L Glucose 191 H Calcium 9.4 Assessment and Plan Assessment and plan (1) Cellulitis: Qualifiers: Site of cellulitis: face Qualified Code(s): L03.211 - Cellulitis of face Code(s): L03.90 - Cellulitis, unspecified Status: Acute Assessment and Plan: Started Ancef and vancomycin Ordered nasal MRSA Can deescalate vancomycin once a nasal MRSA is negative Monitor vitals If no improvement can consider surgical consult for drainage Facial CT: 1. There is a 2.3 x 2.1 x 3.0 cm amorphous density in the soft tissues/subcutaneous fat adjacent to the anterolateral aspect of the right maxilla. There is a small locule of air in this location. No adjacent bony destruction. The finding is favored to represent a phlegmon. No loculated fluid collection in this location at this time. Recommend follow-up to resolution to exclude an underlying mass. 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: Code(s): E03.8 - Other specified hypothyroidism; E06.3 - Autoimmune thyroiditis Status: Acute Assessment and Plan: Continue levothyroxine Plan Code status: Full code DVT prophylaxis: Lovenox 40 subQ daily Hospitalist [facility] Advance Care Plan I have confirmed that the patient's Advanced Care Plan is present, code status is documented, or surrogate decision maker is listed in patient medical record.: Yes Medication Reconciliation I have utilized all available resources to obtain, update and review the patients current medications (includes all prescriptions, OTC, herbals, cannabis, and nutritional supplements).: Yes
[2024-11-24 15:00] VITALS: BP 126/84; PULSE 77; RESP 16; TEMP 35.8; O2SAT 97
[2024-11-24] MEDS: ceFAZolin 1 GM in SODIUM CHLORIDE 0.9% IV 50 ML 100 ML IVPB ×2 (15:50→23:12)
[2024-11-24 19:00] LABS: MRSA (PCR) DETECTED (NOT DETECTE)
[2024-11-24] MEDS: ACETAMINOPHEN 500 MG TABLET 1000 MG PO (19:50)
[2024-11-24 20:15] VITALS: BP 134/84; PULSE 78; RESP 20; TEMP 35.6; O2SAT 100
[2024-11-24] MEDS: MUPIROCIN 2% OINT 22 GM TUBE 1 APPLIC EACH NARE (20:40)
[2024-11-25 04:40] VITALS: BP 124/74; PULSE 85; RESP 16; TEMP 36.2; O2SAT 100
[2024-11-25] MEDS: LEVOTHYROXINE SODIUM 25 MCG TABLET PO (05:55)
[2024-11-25 06:33] LABS: Estimated CRCL calculation 106 ml/min; Estimated Glomerular Filt Rate > 60
--- NOTE | 2024-11-25 07:09 | PM.IMPN ---
Progress Note: A&P Assessment and Plan (1) Cellulitis: Qualifiers: Site of cellulitis: face Qualified Code(s): L03.211 - Cellulitis of face Code(s): L03.90 - Cellulitis, unspecified Status: Acute Assessment and Plan: Facial CT: 1. There is a 2.3 x 2.1 x 3.0 cm amorphous density in the soft tissues/subcutaneous fat adjacent to the anterolateral aspect of the right maxilla. There is a small locule of air in this location. No adjacent bony destruction. The finding is favored to represent a phlegmon. No loculated fluid collection in this location at this time. Recommend follow-up to resolution to exclude an underlying mass. Started Ancef and vancomycin Ordered nasal MRSA Can deescalate vancomycin once a nasal MRSA is negative Monitor vitals General surgery consult to rule out need for surgical intervention Continue IV antibiotics with transition to oral before discharge 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 Patient reports her pimple popped up on , and she had a televisit and was given Keflex. Since her redness did not improve, she visited the ER and was given Bactrim. 11/25/2024 Patient sitting comfortably in bed at time examination. Denies any chest pain, shortness of breath, dysphagia. Patient was able to show me pictures of facial swelling yesterday and the day before and it seems to have improved greatly. She also states the pain has marginally improved. General surgery consult pending to rule out surgical intervention necessity. Remains afebrile without leukocytosis. Will continue IV antibiotics with transition to oral before discharge. No other comments or concerns at this time. Review of Systems Review of Systems: All systems reviewed & are unremarkable except as noted in HPI and below Exam Narrative: GENERAL: Well-appearing, well-nourished, and in no acute distress. HEAD: Normocephalic, atraumatic. Right side of the chin with mild to moderate area of erythema, edema, no fluctuance noted. Mild redness extending down into the neck EYES: EOMI. ENT: Nares clear, no rhinorrhea or epistaxis. Mucous membranes moist. Oropharynx without tonsillar hypertrophy exudate or other lesions. No trismus NECK: Supple. Right submandibular adenopathy CHEST: Clear to auscultation. No respiratory distress. No wheezes rales or rhonchi HEART: Regular rate and rhythm. No murmur heard. Normal peripheral pulses. EXTREMITIES: Normal range of motion. No edema. SKIN: Warm, dry, no rash. NEURO: No focal deficits. Alert and oriented x3. PSYCH: Normal mood and affect Objective Data Vital Signs Vital Signs: Vital Signs - 24 hr 11/24/24 09:10 11/24/24 10:57 11/24/24 11:37 Temperature 98.5 F Pulse Rate 87 93 Respiratory Rate 16 20 Blood Pressure 138/96 H 146/96 H Pulse Oximetry 99 99 Oxygen Delivery Room Air 11/24/24 11:55 11/24/24 15:00 11/24/24 20:00 Temperature 98.4 F 96.5 F L Pulse Rate 80 77 Respiratory Rate 16 16 Blood Pressure 135/94 H 126/84 Pulse Oximetry 100 97 Oxygen Delivery Room Air 11/24/24 20:15 11/25/24 04:40 Temperature 96.1 F L 97.1 F L Pulse Rate 78 85 Respiratory Rate 20 16 Blood Pressure 134/84 124/74 Pulse Oximetry 100 100 Oxygen Delivery Intake/Output Intake/Output: Intake & Output 11/22/24 11/23/24 11/24/24 11/25/24 23:59 23:59 23:59 23:59 Intake Total 880 2190 Balance 880 2190 Meds/Results Medications: Active Medications Generic Name Dose Route Start Last Admin Trade Name Freq PRN Reason Stop Dose Admin Acetaminophen 1,000 mg 11/24/24 13:49 11/24/24 19:50 Acetaminophen 500 Mg Tablet PO 1,000 mg Q6H PRN Administration Mild Pain (1-3) or Fever Hydrocodone Bitart/Acetaminophen 1 tab 11/24/24 14:21 Hydrocodone/Acetaminophen (*Crx) 5-325 Mg Tablet PO Q4H PRN Pain Rated 4-6 Bupropion HCl 150 mg 11/25/24 09:00 Bupropion Hcl Xl (24 Hr) 150 Mg Tabcr PO QAM [facility] Enoxaparin Sodium 40 mg 11/25/24 09:00 Enoxaparin 40 Mg/0.4 Ml Syringe SUB-Q DAILY [facility] Vancomycin HCl 1,250 mg in 250 mls @ 166.667 mls/hr 11/24/24 23:00 11/24/24 23:41 Vancomycin 1,250 Mg/Ns 250 Ml IVPB 166.67 mls/hr Q12H LINDA Administration Cefazolin Sodium 1 gm/ Sodium 50 mls @ 100 mls/hr 11/24/24 15:00 11/24/24 23:12 Chloride IVPB 100 mls/hr Q8H LINDA Administration Levothyroxine Sodium 25 mcg 11/25/24 06:30 11/25/24 05:55 Levothyroxine Sodium 25 Mcg Tablet PO 25 mcg DAILY@0630 [facility] Administration Levothyroxine Sodium 25 mcg 11/26/24 06:30 Levothyroxine Sodium 25 Mcg Tablet PO MoWeFr@0630 [facility] Miscellaneous Information 1 each 11/24/24 00:01 Dextroamphetamine/Amphetamine 10mg Er Caps Are Nonform, Can Pt Use Home Supply? XX 12/24/24 00:00 CLARIFY [facility] Mupirocin 1 applic 11/24/24 21:00 11/24/24 20:40 Mupirocin 2% Oint 22 Gm Tube EACH NARE 11/29/24 09:01 1 applic Q12HR LINDA Administration Non-Formulary Medication 10 mg 11/25/24 09:00 Dextroamphetamine-Amphetamine PO 12/25/24 08:59 DAILY [facility] Sertraline HCl 150 mg 11/25/24 09:00 Sertraline Hcl 50 Mg Tablet PO [facility] Radiology Results: ITS Impressions Face CT 11/24/24 09:35 IMPRESSION: 1. There is a 2.3 x 2.1 x 3.0 cm amorphous density in the soft tissues/subcutaneous fat adjacent to the anterolateral aspect of the right maxilla. There is a small locule of air in this location. No adjacent bony destruction. The finding is favored to represent a phlegmon. No loculated fluid collection in this location at this time. Recommend follow-up to resolution to exclude an underlying mass. Labs Labs: Laboratory Results - last 24 hr 11/24/24 11/24/24 11/24/24 09:50 11:53 16:12 WBC 4.9 RBC 4.22 Hgb 12.5 Hct 37.0 MCV 87.7 MCH 29.6 MCHC 33.8 RDW 12.6 Plt Count 185 MPV 9.9 Immature Gran % (Auto) 0.4 Neut % (Auto) 83.9 H Lymph % (Auto) 11.7 L [place] % (Auto) 3.2 Eos % (Auto) 0.6 Baso % (Auto) 0.2 Lymph # (Auto) 0.58 L [place] # (Auto) 0.2 Eos # (Auto) 0.0 Baso # (Auto) 0.0 Abs Immat Gran (auto) 0.02 Absolute Neuts (auto) 4.1 Absolute Nucleated RBC 0.000 Nucleated RBC % 0.0 ESR 55 H Sodium 138 Potassium 3.9 Chloride 105 Carbon Dioxide 23 Anion Gap 10 BUN 10 Creatinine 0.66 L Estim Creat Clear Calc 105 Estimated GFR > 60 Glucose 191 H POC Capillary Glucose 67 Calcium 9.4 C-Reactive Protein 2.0 H Nasal MRSA (PCR) Detected A* 11/24/24 11/24/24 11/25/24 16:42 20:16 05:45 WBC RBC Hgb Hct MCV MCH MCHC RDW Plt Count MPV Immature Gran % (Auto) Neut % (Auto) Lymph % (Auto) [place] % (Auto) Eos % (Auto) Baso % (Auto) Lymph # (Auto) [place] # (Auto) Eos # (Auto) Baso # (Auto) Abs Immat Gran (auto) Absolute Neuts (auto) Absolute Nucleated RBC Nucleated RBC % ESR Sodium Potassium Chloride Carbon Dioxide Anion Gap BUN Creatinine 0.65 L Estim Creat Clear Calc 106 Estimated GFR > 60 Glucose POC Capillary Glucose 101 131 H Calcium C-Reactive Protein Nasal MRSA (PCR)
[2024-11-25 07:34] LABS: Hematocrit 36.7 % (37.0-47.0); Hemoglobin 12.2 g/dL (12.0-15.0); Immature Granulocyte Percent A 0.2 % (0-0.5); Lymphocytes Absolute Auto 0.69 K/mm3 (0.9-3.2); Mean Corpuscular HGB Conc 33.2 g/dl (32-36); Mean Corpuscular Hemoglobin 29.7 pg (26-34); Mean Corpuscular Volume 89.3 fl (80-100); Nucleated Red Blood Cells Absolute Auto 0.000 K/mm3 (0.0-0.012); Nucleated Red Blood Cells Perc 0.0 % (0.0-0.2); Platelet Count Result 194 k/mm3 (150-375); Red Blood Count 4.11 M/mm3 (4.2-5.4); White Blood Count 4.6 K/mm3 (4.5-10.0)
[2024-11-25 07:40] LABS: Alanine Aminotransferase 15 U/L (6-35); Albumin Level 4.1 g/dL (3.5-5.1); Alkaline Phosphatase 73 U/L (38-126); Anion Gap 7 mmol/L (4-12); Aspartate Amino Transferase 25 U/L (14-36); Bilirubin,Total 0.3 mg/dL (0.2-1.3); Blood Urea Nitrogen 9 mg/dL (7-17); Calcium 8.8 mg/dL (8.4-10.2); Carbon Dioxide 25 mmol/L (22-30); Chloride 106 mmol/L (98-107); Glucose 102 mg/dL (65-110); Potassium 4.1 mmol/L (3.4-5.0); Sodium 138 mmol/L (137-145); Total Protein 7.7 g/dL (6.3-8.2)
[2024-11-25] MEDS: ceFAZolin 1 GM in SODIUM CHLORIDE 0.9% IV 50 ML 100 ML IVPB ×3 (09:38→22:10)
[2024-11-25] MEDS: SERTRALINE HCL 50 MG TABLET 150 MG PO (09:38)
[2024-11-25] MEDS: buPROPion HCL XL (24 HR) 150 MG TABCR PO (09:39)
[2024-11-25] MEDS: MUPIROCIN 2% OINT 22 GM TUBE 1 APPLIC EACH NARE ×2 (09:40→20:53)
[2024-11-25] MEDS: VANCOMYCIN 1,250 MG/NS 250 ML 1,250 MG/250 ML BAG 166.67 MG IVPB (11:18)
[2024-11-25 14:00] VITALS: BP 126/89; PULSE 76; RESP 18; TEMP 36.4; O2SAT 100
[2024-11-25 20:40] VITALS: BP 142/88; PULSE 92; RESP 20; TEMP 35.8; O2SAT 100
[2024-11-26] MEDS: VANCOMYCIN 1,500 MG/NS 500 ML 1,500 MG/500 ML BAG 250 MG IVPB (00:02)
[2024-11-26 05:40] VITALS: BP 127/82; PULSE 88; RESP 16; TEMP 36.2; O2SAT 100
[2024-11-26 06:04] LABS: Hematocrit 37.9 % (37.0-47.0); Hemoglobin 12.5 g/dL (12.0-15.0); Immature Granulocyte Percent A 0.7 % (0-0.5); Lymphocytes Absolute Auto 0.79 K/mm3 (0.9-3.2); Mean Corpuscular HGB Conc 33.0 g/dl (32-36); Mean Corpuscular Hemoglobin 29.5 pg (26-34); Mean Corpuscular Volume 89.4 fl (80-100); Nucleated Red Blood Cells Absolute Auto 0.000 K/mm3 (0.0-0.012); Nucleated Red Blood Cells Perc 0.0 % (0.0-0.2); Platelet Count Result 182 k/mm3 (150-375); Red Blood Count 4.24 M/mm3 (4.2-5.4); White Blood Count 4.4 K/mm3 (4.5-10.0)
[2024-11-26] MEDS: LEVOTHYROXINE SODIUM 25 MCG TABLET PO ×2 (06:09)
[2024-11-26] MEDS: ceFAZolin 1 GM in SODIUM CHLORIDE 0.9% IV 50 ML 100 ML IVPB (06:10)
[2024-11-26 06:28] LABS: Alanine Aminotransferase 21 U/L (6-35); Albumin Level 4.2 g/dL (3.5-5.1); Alkaline Phosphatase 77 U/L (38-126); Anion Gap 9 mmol/L (4-12); Aspartate Amino Transferase 32 U/L (14-36); Bilirubin,Total 0.4 mg/dL (0.2-1.3); Blood Urea Nitrogen 10 mg/dL (7-17); Calcium 9.3 mg/dL (8.4-10.2); Carbon Dioxide 23 mmol/L (22-30); Chloride 107 mmol/L (98-107); Estimated CRCL calculation 105 ml/min; Estimated Glomerular Filt Rate > 60; Glucose 97 mg/dL (65-110); Potassium 4.2 mmol/L (3.4-5.0); Sodium 139 mmol/L (137-145); Total Protein 7.8 g/dL (6.3-8.2)
[2024-11-26 08:00] VITALS: O2SAT 100
[2024-11-26] MEDS: SERTRALINE HCL 50 MG TABLET 150 MG PO (08:06)
[2024-11-26] MEDS: buPROPion HCL XL (24 HR) 150 MG TABCR PO (08:06)
[2024-11-26] MEDS: ENOXAPARIN 40 MG/0.4 ML SYRINGE SUB-Q (08:07)
[2024-11-26] MEDS: MUPIROCIN 2% OINT 22 GM TUBE 1 APPLIC EACH NARE (08:08)
--- NOTE | 2024-11-26 11:48 | P.DS_ITS ---
DS: Admitting Diagnosis Discharge Date 11/26/2024 Admitting Diagnosis Cellulitis DS: Discharge Diagnosis Discharge Diagnosis (1) Cellulitis: Qualifiers: Site of cellulitis: face Qualified Code(s): L03.211 - Cellulitis of face Code(s): L03.90 - Cellulitis, unspecified Status: Acute Assessment and Plan: * Facial CT: 1. There is a 2.3 x 2.1 x 3.0 cm amorphous density in the soft tissues/subcutaneous fat adjacent to the anterolateral aspect of the right maxilla. There is a small locule of air in this location. No adjacent bony destruction. The finding is favored to represent a phlegmon. No loculated fluid collection in this location at this time. Recommend follow-up to resolution to exclude an underlying mass. * Started Ancef and vancomycin * Ordered nasal MRSA * Can deescalate vancomycin once a nasal MRSA is negative * Monitor vitals * General surgery consult to rule out need for surgical intervention * Continue IV antibiotics with transition to oral before discharge (2) Attention Deficit Hyperactivity Disorder (ADHD): Qualifiers: Attention deficit-hyperactivity disorder type: predominantly inattentive Qualified Code(s): F90.0 - Attention-deficit hyperactivity disorder, predominantly inattentive type Code(s): F90.9 - Attention-deficit hyperactivity disorder, unspecified type Status: Acute Assessment and Plan: * Continue Dextroamphetamine-amphetamine ER 10 mg PO QD (3) Chronic depression: Code(s): F32.9 - Major depressive disorder, single episode, unspecified Status: Acute Assessment and Plan: * Continue Sertraline 100mg PO QD (4) 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 Patient reports her pimple popped up on , and she had a televisit and was given Keflex. Since her redness did not improve, she visited the ER and was given Bactrim. The patient took three doses of Bactrim, and she felt her redness and swelling had increased; she visited the ER. Patient is admitted in the setting of IV antibiotics. Nasal MRSA has been ordered. Patient will be started on vancomycin and Ancef. Patient was started on vancomycin Ancef and continue the sliding antibiotics hospitalization. Nasal MRSA was positive and patient was started mupirocin ointment. We were considering general surgery consult but surgery will perform procedures on facial wounds, will defer to discussion with ID pharmacist. Throughout hospitalization, patient continued to improve in terms of facial swelling and erythema. Able to intake food/liquids without difficulty at this point. Patient has hemodynamically stable for discharge at this time, afebrile without leukocytosis. Patient can be discharged on doxycycline and Augmentin for an additional 10 days. Will also be instructed to continue mupirocin ointment in each nostril for additional week. Patient otherwise stable and can be discharged home at this time. Instructed to follow-up with her PCP. Status at Discharge Functional status at discharge: independent ambulation Overall status at discharge: patient is back to baseline Time Spent with Patient Time attestation: Total time spent providing and/or coordinating discharge services: 32 Exam Narrative: GENERAL: Well-appearing, well-nourished, and in no acute distress. HEAD: Normocephalic, atraumatic. Right side of the chin with mild area of erythema, edema, no fluctuance noted. No extending or spreading readness or swelling. EYES: EOMI. ENT: Nares clear, no rhinorrhea or epistaxis. Mucous membranes moist. Oropharynx without tonsillar hypertrophy exudate or other lesions. No trismus NECK: Supple. Right submandibular adenopathy CHEST: Clear to auscultation. No respiratory distress. No wheezes rales or rhonchi HEART: Regular rate and rhythm. No murmur heard. Normal peripheral pulses. EXTREMITIES: Normal range of motion. No edema. SKIN: Warm, dry, no rash. NEURO: No focal deficits. Alert and oriented x3. PSYCH: Normal mood and affect DS: Data Data Completed and Pending Labs on day of discharge: Labs from last 24 hours 11/26/24 11/25/24 11/25/24 05:31 21:56 20:42 WBC 4.4 L RBC 4.24 Hgb 12.5 Hct 37.9 MCV 89.4 MCH 29.5 MCHC 33.0 RDW 12.4 Plt Count 182 MPV 9.6 Immature Gran % (Auto) 0.7 H Neut % (Auto) 72.6 Lymph % (Auto) 17.9 L [place] % (Auto) 7.7 Eos % (Auto) 0.9 Baso % (Auto) 0.2 Lymph # (Auto) 0.79 L [place] # (Auto) 0.3 Eos # (Auto) 0.0 Baso # (Auto) 0.0 Abs Immat Gran (auto) 0.03 Absolute Neuts (auto) 3.2 Absolute Nucleated RBC 0.000 Nucleated RBC % 0.0 Sodium 139 Potassium 4.2 Chloride 107 Carbon Dioxide 23 Anion Gap 9 BUN 10 Creatinine 0.66 L Estim Creat Clear Calc 105 Estimated GFR > 60 Glucose 97 POC Capillary Glucose 111 H Calcium 9.3 Total Bilirubin 0.4 AST 32 ALT 21 Alkaline Phosphatase 77 Total Protein 7.8 Albumin 4.2 Vancomycin Trough 9.1 L 11/25/24 12:31 WBC RBC Hgb Hct MCV MCH MCHC RDW Plt Count MPV Immature Gran % (Auto) Neut % (Auto) Lymph % (Auto) [place] % (Auto) Eos % (Auto) Baso % (Auto) Lymph # (Auto) [place] # (Auto) Eos # (Auto) Baso # (Auto) Abs Immat Gran (auto) Absolute Neuts (auto) Absolute Nucleated RBC Nucleated RBC % Sodium Potassium Chloride Carbon Dioxide Anion Gap BUN Creatinine Estim Creat Clear Calc Estimated GFR Glucose POC Capillary Glucose 105 Calcium Total Bilirubin AST ALT Alkaline Phosphatase Total Protein Albumin Vancomycin Trough Discharge Plan Discharge Attending physician on discharge: Harvey Ramírez Consulting providers: Sanchez Bender Discharging Clinician: Sanchez Bender Anticipated Discharge Date/Time: 11/26/24 11:39 Patient Disposition: Home Activity: as tolerated Diet: regular Discharge Instructions: Discharge disposition: Home Take medications as prescribed. You will be prescribed Augmentin and doxycycline to be taken twice daily for for total 10 days. Take 1 dose in the morning and 1 dose in the evening. Continue applying Mupirocin ointment to each nostril twice daily for the next 5 days. You do not need to quarantine, just be sure to keep hands clean by washing thoroughly with soap and water. Hands should be wet with water and plain soap and be rubbed together for 15 to 30 seconds. Special attention should be paid to the fingernails, between the fingers, and the wrists.?Keep cuts and scrapes clean, dry, and covered with a bandage until healed. Avoid touching other people's wounds or bandages. Monitor blood pressures Take caution while standing, rising, or moving Change positions slowly taking a break between each position change If you standing feel dizzy sit back down and take a break Encouraged to continue with yearly vaccinations Return to the emergency department if he developed sudden shortness of breath, chest pain, nausea, vomiting, upset stomach or intractable diarrhea Return to the emergency department if you develop fever greater than 101.5 Follow-up with the primary care physician within 1-2 weeks Thank you for choosing [facility] for your healthcare needs Patient Instructions: Antibiotic Form Patient Language: [place] Sudanese Stand Alone Forms: General Discharge Information Follow-up/Referrals: Francine Pizano MD [Primary Care Provider, Family Practice] Discharge Medications: New doxycycline hyclate 100 mg Tablet 100 mg PO Q12HR 10 Days Qty: 20 0RF amoxicillin-pot clavulanate 875-125 mg tablet 1 tablet PO Q12H Qty: 20 0RF Continued Probiotic Pearls Women's 1 billion cell capsule,delayed release(DR/EC) 1 cap PO DAILY selenium 200 mcg tablet 200 mcg PO DAILY multivitamin Tablet 1 tablet PO DAILY levothyroxine 25 mcg tablet See Rx Instructions .ROUTE .COMPLEX Qty: 90 3RF Dose Instruction: TAKE 1 TABLET DAILY Rx Instructions: TAKE 1 TABLET 3x a week (MWF) triamcinolone acetonide 0.1 % cream 1 applic topical BID PRN (Reason: eczema) Qty: 80 2RF ibuprofen 800 mg tablet 800 mg PO TID PRN (Reason: pain) Qty: 20 0RF acetaminophen [Tylenol Extra Strength] 500 mg tablet 1,000 mg PO TID PRN (Reason: pain) Qty: 30 0RF mupirocin 2 % ointment 1 applic TOPICAL TID levothyroxine [Euthyrox] 25 mcg tablet 25 mcg PO DAILY bupropion HCl 150 mg tablet extended release 24 hr 150 mg PO QAM Qty: 90 1RF sertraline 100 mg tablet See Rx Instructions .ROUTE .COMPLEX Qty: 135 1RF Dose Instruction: TAKE 1 AND 1/2 TABLETS BY MOUTH DAILY Rx Instructions: TAKE 1 AND 1/2 TABLETS BY MOUTH DAILY dextroamphetamine-amphetamine 10 mg capsule,extended release 24hr 10 mg PO DAILY Qty: 30 0RF Rx Instructions: January sulfamethoxazole-trimethoprim [Bactrim DS] 800-160 mg tablet 1 tablet PO Q12H Qty: 20 0RF metformin [Glucophage XR] 500 mg tablet extended release 24 hr 1,000 mg PO BID Qty: 360 1RF Date of admission: 11/24/24 10:46 Primary Care Provider: Francine Pizano Admitting Provider: Harvey Ramírez Attending physician on admission: Harvey Ramírez Condition: Stable
== END 2024-11-26 12:53 | disposition home or self-care (01) ==
LOC: ANHED 09:25 → ANH3MEDSUR 11:28
PROVIDERS: General Practice; Physician Assistant; Admitting Provider Family Medicine; Emergency Provider Physician Assistant; PCP Family Medicine; Visit Provider Family Medicine
DX: L03.211 Cellulitis of face (principal); R73.03 Prediabetes; F90.0 Attention-deficit hyperactivity disorder, predominantly inattentive type; E03.8 Other specified hypothyroidism; E06.3 Autoimmune thyroiditis; F32.9 Major depressive disorder, single episode, unspecified; Z22.322 Carrier or suspected carrier of Methicillin resistant Staphylococcus aureus
CPT/HCPCS: 36415; 70486; 80048; 80053; 80202; 82565; 82948; 85025; 85652; 86140; 87641; 96365; 96366; 96367; 96372; 99285; A9270; G0378; J0690; J1650; J3373

== ENCOUNTER 2024-12-31 13:58 | Outpatient (CLI) | payer OTHER, SELFPAY ==
--- NOTE | 2024-12-31 14:00 | NEURO_ITS ---
Impression: # Complains of numbness of hands. # Mild sensory Carpal Tunnel Syndrome bilaterally, right more than left. # No Ulnar Neuropathy. # Normal Needle/ EMG exam. Nerve Conduction Studies ?Stim Site NR Peak (ms) P-T Amp (?V) Site1 Site2 Delta-P (ms) Dist (cm) Sandeep (m/s) Left Median Anti Sensory (2-3nd Digit) Wrist ? 3.5 36.2 Wrist 2-3nd Digit 3.5 14.0 40 Wrist ? 3.5 37.9 Wrist 2-3nd Digit 3.5 14.0 40 Right Median Anti Sensory (2-3nd Digit) Wrist ? 4.2 23.7 Wrist 2-3nd Digit 4.2 14.0 33 Wrist ? 4.4 20.4 Wrist 2-3nd Digit 4.2 14.0 33 Left Radial Anti Sensory (Base 1st Digit) Wrist ? 1.8 17.8 Wrist Base 1st Digit 1.8 0.0 Right Radial Anti Sensory (Base 1st Digit) Wrist ? 1.7 17.1 Wrist Base 1st Digit 1.7 0.0 Left Ulnar Anti Sensory (5th Digit) Wrist ? 2.7 30.6 Wrist 5th Digit 2.7 14.0 52 Right Ulnar Anti Sensory (5th Digit) Wrist ? 2.5 26.6 Wrist 5th Digit 2.5 14.0 56 ?Stim Site NR Onset (ms) O-P Amp (mV) Site1 Site2 Delta-0 (ms) Dist (cm) Sandeep (m/s) Left Median Motor (Abd Poll Brev) Wrist ? 3.8 2.2 Elbow Wrist 6.2 31.0 50 Elbow ? 10.0 2.5 Right Median Motor (Abd Poll Brev) Wrist ? 3.1 4.4 Elbow Wrist 5.7 30.0 53 Elbow ? 8.8 4.1 Left Ulnar Motor (Abd Dig Minimi) Wrist ? 2.5 6.6 A Elbow Wrist 5.3 31.0 58 A Elbow ? 7.8 5.9 B Elbow Wrist 3.9 23.0 59 B Elbow ? 6.4 4.4 Right Ulnar Motor (Abd Dig Minimi) Wrist ? 2.5 5.1 A Elbow Wrist 5.2 30.0 58 A Elbow ? 7.7 4.0 B Elbow Wrist 3.7 22.0 59 B Elbow ? 6.2 4.4 F Wave Studies ?NR F-Lat (ms) L-R F-Lat (ms) Left Median (Mrkrs) (Abd Poll Brev) ? 30.00 0.88 Right Median (Mrkrs) (Abd Poll Brev) ? 29.12 0.88 Left Ulnar (Mrkrs) (Abd Dig Min) ? 27.54 1.33 Right Ulnar (Mrkrs) (Abd Dig Min) ? 26.22 1.33 Electromyography ?Side Muscle Nerve Root Ins Act Fibs Amp Dur Recrt Comment Right 1stDorInt Ulnar C8-T1 Nml Nml Nml Nml Nml Right Ext Indicis Radial (Post Int) C7-8 Nml Nml Nml Nml Nml Right Ext Digitorum Radial (Post Int) C7-8 Nml Nml Nml Nml Nml Right BrachioRad Radial C5-6 Nml Nml Nml Nml Nml Right PronatorTeres Median C6-7 Nml Nml Nml Nml Nml Right Abd Poll Brev Median C8-T1 Nml Nml Nml Nml Nml Right ABD Dig Min Ulnar C8-T1 Nml Nml Nml Nml Nml Right FlexPolLong Median (Ant Int) C7-8 Nml Nml Nml Nml Nml Right Abd Poll Long Radial (Post Int) C7-8 Nml Nml Nml Nml Nml Left 1stDorInt Ulnar C8-T1 Nml Nml Nml Nml Nml Left Ext Indicis Radial (Post Int) C7-8 Nml Nml Nml Nml Nml Left Ext Digitorum Radial (Post Int) C7-8 Nml Nml Nml Nml Nml Left BrachioRad Radial C5-6 Nml Nml Nml Nml Nml Left PronatorTeres Median C6-7 Nml Nml Nml Nml Nml Left Abd Poll Brev Median C8-T1 Nml Nml Nml Nml Nml Left ABD Dig Min Ulnar C8-T1 Nml Nml Nml Nml Nml Left FlexPolLong Median (Ant Int) C7-8 Nml Nml Nml Nml Nml Left Abd Poll Long Radial (Post Int) C7-8 Nml Nml Nml Nml Nml
--- OUTSIDE RECORDS SUMMARY | 2024-12-31 14:00 | XMS_ITS | Clinical Summary ---
Author Organization [employer] [address] - [address] [facility] [address] [place] [address] Phone Care Team Providers Care Professional Tutor Name Role Phone Francine Pizano MD Primary Care Provider Social History Tobacco Use Types Packs/Day Years Used Date Smoking Tobacco: Never Assessed Comments Unknown Sex and Gender Information Value Date Recorded Sex Assigned at Not on file Legal Sex Female 11:12 AM CDT Gender Identity Not on file Sexual Orientation Not on file Plan of Treatment Health Maintenance Due Date Last Done Comments DTAP/TDAP/TD VACCINES (1 - Tdap) 2005 HEPATITIS B VACCINES (1 of 3 - 19+ 3-dose series) 12/08 HPV/Cotest (21-29) 12/22/2007 HPV VACCINES (1 - 3-dose SCDM series) 2013 CERVICAL CANCER SCREENING 2016 HPV/Cotest (30-65) 2016 PAP SMEAR 2016 INFLUENZA VACCINE (#1) 2024 Insurance [facility] OPT[employer] PPO [id number] Care Teams Professional Tutor Relationship Specialty Start Date End Date Francine Pizano MD PCP - General Family Practice 08/08/12
--- OUTSIDE RECORDS SUMMARY | 2024-12-31 14:00 | XMS_ITS | Clinical Summary ---
Author Organization 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
== END 2024-12-31 13:59 | disposition home or self-care (01) ==
PROVIDERS: PCP Family Medicine; Visit Provider Plastic Surgery
DX: G56.10 Other lesions of median nerve, unspecified upper limb (principal); G56.03 Carpal tunnel syndrome, bilateral upper limbs
CPT/HCPCS: 95886; 95911

== ENCOUNTER 2025-02-02 15:36 | Outpatient (CLI) | payer OTHER, SELFPAY ==
--- NOTE | ~2025-02-02 | XR_ITS ---
EXAMINATION: XR hand RT 2V, 02/02/2025 15:50 CDT HISTORY: multiple joint pain COMPARISON: No comparisons available. Findings: No acute fracture or malalignment. No significant degenerative changes. Soft tissues unremarkable. Impression: No acute fracture or malalignment. Reviewed, dictated and finalized at location P. Impression: No acute fracture or malalignment.
--- NOTE | ~2025-02-02 | XR_ITS ---
EXAMINATION: XR hand LT 2V, 02/02/2025 15:50 CDT HISTORY: multiple joint pain COMPARISON: No comparisons available. Findings: No acute fracture or malalignment. No significant degenerative changes. Soft tissues unremarkable. Impression: No acute fracture or malalignment. Reviewed, dictated and finalized at location P. Impression: No acute fracture or malalignment.
--- NOTE | ~2025-02-02 | XR_ITS ---
EXAMINATION: XR foot RT 2V, 02/02/2025 15:50 CDT HISTORY: multiple joint pain COMPARISON: No comparisons available. Findings: No acute fracture or malalignment. No significant degenerative changes. Soft tissues unremarkable. Impression: No acute fracture or malalignment. Reviewed, dictated and finalized at location P. Impression: No acute fracture or malalignment.
--- NOTE | ~2025-02-02 | XR_ITS ---
EXAMINATION: XR sacroiliac joints min 3V, 02/02/2025 15:50 CDT HISTORY: multiple joint pain COMPARISON: No comparisons available. Findings: No acute fracture or malalignment. No significant degenerative changes. Soft tissues unremarkable. Impression: No acute fracture or malalignment. Reviewed, dictated and finalized at location P. Impression: No acute fracture or malalignment.
--- NOTE | ~2025-02-02 | XR_ITS ---
EXAMINATION: XR foot LT 2V, 02/02/2025 15:50 CDT HISTORY: multiple joint pain COMPARISON: No comparisons available. Findings: No acute fracture or malalignment. No significant degenerative changes. Soft tissues unremarkable. Impression: No acute fracture or malalignment. Reviewed, dictated and finalized at location P. Impression: No acute fracture or malalignment.
--- OUTSIDE RECORDS SUMMARY | 2025-02-02 17:01 | XMS_ITS | Clinical Summary ---
Author Organization [employer] [address] [facility] [address] [place] [address] Phone Care Team Providers Care Drilling Engineering Manager Name Role Phone Francine Pizano MD Primary [...] INFLUENZA VACCINE (#1) 2024 Insurance [facility] OPT[employer] PPO [id number] Care Teams Drilling Engineering Manager Relationship Specialty Start Date End Date Francine Pizano MD PCP - General Family Practice 08/08/12
--- OUTSIDE RECORDS SUMMARY | 2025-02-02 17:02 | XMS_ITS | Clinical Summary ---
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
== END 2025-02-02 15:37 | disposition home or self-care (01) ==
PROVIDERS: PCP Family Medicine; Visit Provider Internal Medicine Rheumatology
DX: R53.81 Other malaise (principal); M25.50 Pain in unspecified joint; M79.10 Myalgia, unspecified site
CPT/HCPCS: 72202; 73120; 73620